=== PATIENT | male | born 1955 | race Caucasian/White ===

== ENCOUNTER → 2017-12-20 07:55 | Outpatient (CLI) | payer OTHER, SELFPAY ==
[2017-12-20 09:28] LABS: Add Manual Diff / Slide Review NO; Basophils Percent Auto 0.7 % (0-2); Eosinophils Percent Auto 2.8 % (2-4); Hematocrit 41.8 % (41-53); Hemoglobin 14.5 g/dL (13.5-17.5); Lymphocytes Percent Auto 24.1 % (25-40); Mean Corpuscular HGB Conc 34.7 % (30-36); Mean Corpuscular Hemoglobin 29.3 PG (26-34); Mean Corpuscular Volume 84.7 fL (80-100); Monocytes Percent Auto 6.9 % (3-14); Neutrophils Absolute Auto 5500 /uL (3000-5900); Neutrophils Percent Auto 65.5 % (50-75); Platelet Count 258 X10^3/uL (150-400); Red Blood Cell Count 4.94 X10^6/uL (4.5-5.9); Red Cell Distribution Width 13.5 % (11.6-14.8); White Blood Cell Count 8.3 X10^3/uL (4.5-11.0)
[2017-12-20 09:49] LABS: Hemoglobin A1C% w Est Avg Glu 7.8 % (4.0-6.0)
[2017-12-20 10:12] LABS: Carbon Dioxide 27 mmol/L (22-32); Chloride 102 mmol/L (98-107); HEMOLYSIS < 15 (0-50); Potassium 4.3 mmol/L (3.4-5.1); Sodium 143 mmol/L (137-145)
== END ==
PROVIDERS: PCP Family Medicine; Visit Provider Orthopaedic Surgery
DX: R73.09 Other abnormal glucose (principal); Z01.812 Encounter for preprocedural laboratory examination; Z01.818 Encounter for other preprocedural examination
CPT/HCPCS: 36415; 80051; 83036; 85025; 93005

== ENCOUNTER → 2017-12-26 13:34 | Outpatient (CLI) | payer OTHER, SELFPAY ==
--- NOTE | 2017-12-26 13:35 | DI.ECHO.S_ITS ---
[facility] +---------+ : : [address] : : : : [place] : : : : [id number] : : : : Phone: [phone]---------+ Echocardiogram Report + + :Name: DICK SALDIVAR V Study Date: 12/26/2017 Height: 67 in : :[facility] Exam Location: [facility] Weight: 311 lb : : Gender: Male BSA: 2.4 m2 : :: 1955 Age: 62 yrs BP: 145/85 mmHg: :Reason For Study: Abnormal ECG : :Ordering Physician: Dr. Kingsley : :Franco Performed By: Millie Page : + + Interpretation Summary Left ventricular systolic function is normal without focal wall motion abnormalities with the ejection fraction visually estimated to be 60-65%. There is mild-moderate concentric left ventricular hypertrophy. The right ventricle is mildly dilated but right ventricular systolic function is normal. Pulmonary artery pressures cannot be estimated because of the lack of a measurable TR jet velocity. The left atrium is moderately dilated and the right atrium is mildly dilated. There is mild aortic regurgitation but no other significant valvular heart disease. The aortic root and ascending aorta are moderately enlarged. Procedure: A two-dimensional transthoracic echocardiogram with color flow and Doppler was performed. The study quality was technically adequate. There is no prior echocardiogram noted for this patient. The heart rate ranged between 37-63 bpm during the study. Left Ventricle: The left ventricle is normal in size. There is mild-moderate concentric left ventricular hypertrophy. Left ventricular systolic function is normal without focal wall motion abnormalities. The ejection fraction is estimated to be 60-65%. Diastolic function could not be accurately assessed due to tachycardia. Right Ventricle: The right ventricle is mildly dilated. The right ventricular systolic function is normal. Atria: The left atrium is moderately dilated. The right atrium is mildly dilated. There is no Doppler evidence for an interatrial shunt. Mitral Valve: The mitral valve leaflets appear normal. There is no evidence of stenosis, fluttering, or prolapse. There is trace mitral regurgitation. Aortic Valve: The aortic valve is trileaflet. The aortic valve is slightly calcified. The aortic valve opens well. There is no aortic valve stenosis. There is mild aortic regurgitation. Tricuspid Valve: The tricuspid valve is normal in structure and function. There is a trace or physiologic amount of tricuspid regurgitation. Pulmonary artery pressures cannot be estimated because of the lack of a measurable TR jet velocity. Pulmonic Valve: The pulmonic valve is not well visualized. There is a trace or physiologic amount of pulmonic regurgitation. There is no other significant valvular heart disease. Great Vessels: The aortic root is moderately dilated. The ascending aorta is moderately enlarged. The aortic arch could not be visualized. The pulmonary artery is not well visualized, but is probably normal size. The inferior vena cava was not well visualized. Pericardium/ Pleura There is no pericardial effusion. There is no pleural effusion. MMode/2D Measurements & Calculations LVIDd: 5.5 cm Ao root diam: 4.2 cm LVIDs: 3.5 cm asc Aorta Diam: 4.4 cm FS: 35.6 % EPSS: 1.0 cm IVSd: 1.2 cm LVPWd: 0.94 cm LV pringle. diameter/BSA (cm/m^2): 2.2 LV sys. diameter/BSA (cm/m^2): 1.4 LA A2 area: 30.3 cm2 RA long axis: 7.4 cm LA A4 area: 32.1 cm2 RA area: 27.7 cm2 LA length (vol): 7.2 cm RA vol: 88.3 ml LA vol: 114.7 ml RA : 36.2 ml/m2 LA vol index: 47.0 ml/m2 RVD1 (basal): 5.0 cm TAPSE: 3.0 cm Doppler Measurements & Calculations Ao V2 max: 122.0 cm/sec LVOT Max Vitaliy: 87.0 cm/sec Ao V2 mean: 79.8 cm/sec LV V1 max P.0 mmHg Ao max P.0 mmHg LV V1 VTI: 19.1 cm Ao mean P.9 mmHg sev ratio: 0.79 Ao V2 VTI: 24.4 cm MV E max vitaliy: 83.2 cm/sec PA V2 max: 69.3 cm/sec MV A max vitaliy: 78.9 cm/sec PA V2 mean: 52.5 cm/sec MV E/A: 1.1 PA mean P.2 mmHg Med Peak E' Vitaliy: 4.3 cm/sec PA Accel Time: 0.13 sec E/E' med: 19.2 Lat Peak E' Vitaliy: 4.5 cm/sec E/E' lat: 18.3 E/e' average: 18.7 MV dec time: 0.26 sec MV P1/2t: 71.2 msec MV P1/2t max vitaliy: 81.4 cm/sec MVA(P1/2t): 3.1 cm2 Reading Physician:CIRO
== END ==
PROVIDERS: Family Provider Family Medicine; PCP Family Medicine; Visit Provider Family Medicine
DX: R94.31 Abnormal electrocardiogram [ECG] [EKG] (principal)
CPT/HCPCS: C8929; Q9957

== ENCOUNTER 2017-12-28 07:19 | Day surgery (SDC) | payer OTHER, SELFPAY ==
[2017-12-15 16:12] VITALS: BMI 48.6
[2017-12-28] VITALS (13 sets, daily range): BP systolic 133–175; BP diastolic 72–97; PULSE 48–60; RESP 8–16; TEMP 36.1–36.2; O2SAT 90–98; BMI 48.6
[2017-12-28] MEDS: LACTATED RINGERS 1,000 ML 42 ML IV (09:00)
[2017-12-28] MEDS: ACETAMINOPHEN 325 MG TABLET 975 MG PO (09:07)
[2017-12-28] MEDS: PREGABALIN 75 MG CAPSULE PO (09:10)
[2017-12-28] MEDS: INSULIN REGULAR 100 UNIT/ML 3 ML VIAL IV (10:10)
--- NOTE | 2017-12-28 10:13 | PM.OP.1 ---
Operative Date/Time/Diagnoses - Date of procedure: 12/28/17 Time of procedure: 11:45 Pre-op diagnosis: Medial compartment osteoarthritis right knee pain Post-op diagnosis: same Procedure & Clinicians Procedure: Right knee medial compartment arthroplasty Same procedure as scheduled: Yes Indications: The patient presents today for medial compartment knee arthroplasty after failure of conservative treatment. The nature of the procedure including the risks and benefits, alternatives, postoperative course and expected outcome were discussed and all questions answered. Consent was obtained. Operative site confirmed and marked. Surgeon: Mike Salazar Bacteriologist Pharmaceutical: Angelina Mckoy Anesthesia Type: General and Local Operative Notes Findings: Severe medial compartment osteoarthritis. Closure Type: primary Specimen(s): none sent Implants & Drains: [place] and [employer] ZUK: D femoral component, 3 tibial component and 9 mm spacer. Applied: implant(s) Estimated Blood Loss (mL): 10 Blood products transfused: none Tourniquet time (min): 45 Procedure in detail: The patient was taken to the operative suite and placed under general anesthesia. The patient received prophylactic antibiotics 1 g of IV prior to surgery. The lateral aspect of the leg was prepped and the knee injected with 20 mL of 1% lidocaine with epinephrine. The leg was prepped and draped in usual sterile fashion. The leg was exsanguinated with an Esmarch dressing and the tourniquet raised to 300 torr. A 10 cm medial parapatellar incision and arthrotomy was then made. The anterior aspect of the fat pad and medial meniscus was resected. A small amount of anterior tibial boss was resected with a oscillating saw. The knee was then extended and the alignment guide placed. The distal femoral and proximal tibial cutting guides were then pinned into place. The distal femoral cut was made in extension. The proximal tibial cut was made in flexion. All remaining meniscus was excised. Gaps were checked with blocks. Soft tissues were then injected with a combination of 40 mL of quarter percent Marcaine with epinephrine, 20 mL of Exparel. The femur was sized and the appropriate cutting guide placed. The peg holes were drilled and chamfer cuts made. Next the tibia was sized and drilled. Trial components were then placed. The knee had good mormonism of soft tissue tension without over correction. Range of motion was full. The trial components were removed. The knee was cleansed with Pulsavac irrigation and dried. The components were then cemented with high viscosity vacuum mixed bone cement. The knee was held in extension until the cement had adequately cured. The knee was then irrigated and inspected for any further debris. The extensor mechanism was closed at 90? of flexion with a few interrupted #1 Vicryl sutures and a running O V-LOC suture. The knee was then filled with 50 mL of solution containing 1 g of tranexamic acid and 10 mL of 0.5% Marcaine. The subcutaneous tissue was closed with 2-0 Vicryl. The skin was closed with a running 3 0 V-LOC suture and surgical adhesive. An Aquacel dressing was applied. The leg was then wrapped with an Del which will be kept on for the first 24 hours. The patient tolerated the procedure well and was returned to recovery room in good condition. Complications: none Condition: stable Disposition: same day surgery Plan for aftercare: Routine protocol for unicompartmental knee. Discharge to home. Follow up in 2 weeks.
[2017-12-28] MEDS: CEFAZOLIN 2 GM/100 ML FROZ.PIGGY IV (10:34)
--- NOTE | 2017-12-28 11:19 | SUR.OPER ---
Supine on padded OR bed. Pillow under head, arms secured on padded armboards <90 degree abduction. Safety belt across torso. Non-operative leg secured with tape over blanket over lower leg. Operative leg secured in DeMayo/Sixto positioner. Foam padded brace at thigh of operative leg.
[2017-12-28] MEDS: BUPIVACAINE 0.5% (PF) 10 ML, TRANEXAMIC ACID 1,000 MG, SODIUM CHLORIDE 0.9% 20 ML INJ (11:37)
[2017-12-28] MEDS: BUPIVACAINE 0.5% W/ EPI (PF) 20 ML, BUPIVACAINE LIPOSOME 266 MG, SODIUM CHLORIDE 0.9% 2... INJ (11:37)
[2017-12-28] MEDS: LIDOCAINE 1% W/EPI INJ 20 ML INJ (11:47)
--- NOTE | 2017-12-28 11:54 | PM.PREOP ---
Pre-operative Note Interval Note Pre-op Check: History & Physical Reviewed by Physician
--- NOTE | 2017-12-28 12:22 | SUR.PHASEI ---
Blood glucose not done per Dr. Beavers.
--- NOTE | 2017-12-28 12:27 | SUR.PHASEI ---
Responsive to voice but quite sleepy still at this point. Able to decrease o2 slightly.
--- NOTE | 2017-12-28 12:42 | SUR.PHASEI ---
brief trial with NC with sat dropping to 91% however same flow rate with mask brings sats to 95%. RR is increasing with no irregular pattern seen at this time, but still sleepy altho responsive quickly to voice.
== END 2017-12-28 13:52 | disposition home or self-care (01) ==
PROVIDERS: Family Provider Family Medicine; PCP Family Medicine; Visit Provider Orthopaedic Surgery
PROC: (CPT 27446; principal; 2017-12-28 09:15)
DX: M17.11 Unilateral primary osteoarthritis, right knee (principal); E11.9 Type 2 diabetes mellitus without complications; Z79.84 Long term (current) use of oral hypoglycemic drugs; I10 Essential (primary) hypertension; G47.33 Obstructive sleep apnea (adult) (pediatric); E66.9 Obesity, unspecified; Z68.42 Body mass index [BMI] 45.0-49.9, adult
CPT/HCPCS: 27446; C1776; C9290; J0690; J2405; J2704; J3010

== ENCOUNTER 2018-03-21 09:00 | Outpatient (RCR) | payer OTHER, SELFPAY ==
--- NOTE | 2018-01-03 17:35 | PT.OIE ---
Past Medical History (Last Updated 12/15/17 @ 16:26 by Sierra Mcginnis RN) Arthritis of both knees (Acute) Cataract (Acute) Diverticulitis (Acute) Genital HSV (Acute) History of diverticulitis (Acute) Hypertension (Acute) Knee pain, bilateral (Acute) Melanoma (Acute ~2006) Psoriasis (Acute) Sleep apnea (Acute) Provider Visit Care Team Role Provider Type Sancho Gamez MD Family Provider Physician Primary Care Provider Specialty: Family Practice Address: [address] [place] [address], [id number] Email: [email or web address] Mike Salazar MD Attending Provider Physician Specialty: Orthopedics Address: [address] [place] [address], [id number] Email: Physical Therapy Initial Evaluation PT-OP-A Visit Information Start: 01/02/18 14:32 Freq: Status: Active Protocol: Document 01/02/18 14:32 [facility] (Rec: 01/02/18 17:11 [facility] [id number]) Out-Patient Physical Therapy Visit Information Visit Information Visit Type Initial Evaluation Visit Start Time 14:32 Visit Stop Time 15:34 Total Visit Minutes 60 Visit Number 1 Number of DIRECTOR CONSUMER AFFAIRS Visits 0 PT-OP-B Current Condition Start: 01/02/18 14:32 Freq: Status: Active Protocol: Document 01/02/18 14:32 [facility] (Rec: 01/02/18 15:20 [facility] [id number]) Current Condition History of Current Condition Onset Date 01/07/18. Current Complaints Right uni-compartmental knee arthroplasty. History of Current Condition Uni-compartmental knee arthroplsty 12/28/17. Reports compliant to HEP, dressing has loosened on one side but he has been taping it closed for shower. Drainage has increased but no leaking. States he got a cold after surgery, better today; started as a chest cold, fever of 99 for 1 day. Has not called surgeon regarding either dressing or cold. Unable to lift LE by himself. Enough pain that he has difficulty sleeping, plus the cold. Prior to surgery ambulated with cane. Future Testing and Treatments Planned Plan is for left knee surgery after recovered from right. Treatment Goals Patient/Caregiver Goals Improve ROM, strength, gait. Prep for left TKA. Prior Functional Status Baseline Function- ADL's Independent Baseline Function- Mobility Independent Baseline Function- Gait Independent, limited distance, used cane due to bilateral knee pn Baseline Function- Recreation/Hobbies photography Baseline Function- Other stairs alternating pattern Current Functional Impairments (Reported) Functional Limitations- Mobility/Gait using walker Functional Limitations- Other step-to on stairs PT-OP-G Mobility & Gait Start: 01/02/18 14:32 Freq: Status: Active Protocol: Document 01/02/18 14:32 [facility] (Rec: 01/02/18 17:11 [facility] [id number]) OP Gait Assessment Gait Gait Assistance Required: Independent Assistive Devices Assistive Device Standard Walker Gait Deviations General Gait Pattern Antalgic Factors Limiting Gait Function Factors Limiting Gait Function Pain PT-OP-K Range of Motion Start: 01/02/18 14:32 Freq: Status: Active Protocol: Document 01/02/18 14:32 [facility] (Rec: 01/02/18 17:11 [facility] [id number]) Knee Goniometric Range of Motion Knee Measured in Degrees Right Knee ROM WFL No Flexion Active (degrees) 94 Flexion Passive (degrees) 100 Extension Active (degrees) 22 Extension Passive (degrees) 5 Left Knee ROM WFL Yes Knee ROM Limitations Knee ROM Limitations Pain Swelling PT-OP-M Strength Start: 01/02/18 14:32 Freq: Status: Active Protocol: Document 01/02/18 14:32 [facility] (Rec: 01/02/18 17:11 [facility] [id number]) Knee Strength Knee Manual Muscle Testing Right Comments extensor lag requiring mod assist with SAQ and SLR PT-OP-Q Treatments Start: 01/02/18 14:32 Freq: Status: Active Protocol: Document 01/02/18 14:32 [facility] (Rec: 01/02/18 17:11 [facility] [id number]) Therapeutic Exercises Supine Exercises 2 Supine Exercise Name knee flex with foot on therapy ball Side right 1 Supine Exercise Name ankle pumps, quad sets, SAQ, SLR Side right Comments mod assist with SAQ and SLR Self-Care/Home Management Treatment Education Patient Education Home Exercise Program Activities Self-Care/Home Management Activities Elevate higher during icing after exercises at home PT-OP-R Modalities Start: 01/02/18 14:32 Freq: Status: Active Protocol: Document 01/02/18 14:32 [facility] (Rec: 01/02/18 17:11 [facility] [id number]) Electric Stimulation Electric Stimulation Interferential Current (IFC) Body Location right knee Duration (Minutes) 15 Intensity 26 Target/Sweep Sweep Patient Position Supine Combined With Heat/Cold Cold Pack Comments right LE elvated PT-OP-T Assessment and Plan Start: 01/02/18 14:32 Freq: Status: Active Protocol: Document 01/02/18 14:32 [facility] (Rec: 01/02/18 17:11 [facility] [id number]) Physical Therapy Assessment Rehab Potential Rehabilitation Potential Good Evaluation Complexity Number of Personal Factors/Comorbidities 3 or More Clinical Presentation at Evaluation Evolving Impairments Impairments Edema Functional Mobility Gait Pain ROM Strength Goals Three Impairment strength Rn Sexual Assault Goal (LTG) right knee strength at least 4 +/5 LTG Duration 8 wks Two Impairment antalgic gait, requires use of walker Rn Sexual Assault Goal (LTG) Patient able to ambulate on level surfaces and stairs ( alternating pattern) without assistive device without significant limp LTG Duration 8 wks One Impairment ROM Rn Sexual Assault Goal (LTG) Improve right knee AROM to 0- 120 LTG Duration 8 wks Assessment Summary Assessment Patient presents with post-op limitations in knee ROM, strength, gait following right knee delvis-arthroplasty. Moderate edema, no signs or symptoms of infection. Developed a cold after his surgery; consulted with doctor 's office while in PT. Mod amount drainage on post-op dressing and lower lateral edges of dressing have come loose; also consulted with physician office who recommended using waterproof tape to secure no change needed. Patient was issued a new bandage from PT in case becames necessary at home. Will benefit from PT for right knee ROM, strengthening, gait and balance retraining, edema and pain managment. Physical Therapy Plan Frequency and Duration Frequency of Treatment 2x/Week Duration of Treatment 8 wks Plan of Care Start Date 01/02/18 Plan of Care End Date 03/05/18 Therapeutic Interventions Therapeutic Interventions Gait Training Home Exercise Program Manual Therapy Neuromuscular Re-education Patient/Caregiver Education Self-Care/Home Management Soft Tissue Mobilization Taping Therapeutic Activities Therapeutic Exercises Modalities Cold Pack/Ice Massage Electric Stimulation Other Therapeutic Interventions Possible aquatic therapy when incision healed and approved by physician Next Visit Focus/Plan Next Note Type Treatment Note Next Visit Plan Progression of UKA knee rehab; started on recumbant elliptical, progress ther ex as tolerated.
--- NOTE | 2018-01-03 17:35 | PT.OPPOC ---
Provider Visit Care Team Role Provider Type Sancho Gamez MD Family Provider Physician Primary Care Provider Specialty: Family Practice Address: [address] [place] [address], [id number] Email: [email or web address] Mike Salazar MD Attending Provider Physician Specialty: Orthopedics Address: [address] [place] [address], [phone] Email: [email or web address] Plan Of Care PT-OP-T Assessment and Plan Start: 01/02/18 14:32 Freq: Status: Active Protocol: Document 01/02/18 14:32 [facility] (Rec: 01/02/18 17:11 [facility] [id number]) Physical Therapy Assessment Rehab Potential Rehabilitation Potential Good Evaluation Complexity Number of Personal Factors/Comorbidities 3 or More Clinical Presentation at Evaluation Evolving Impairments Impairments Edema Functional Mobility Gait Pain ROM Strength Goals Three Impairment strength Industrial Gas Fitter Helper Goal (LTG) right knee strength at least 4 +/5 LTG Duration 8 wks Two Impairment antalgic gait, requires use of walker Industrial Gas Fitter Helper Goal (LTG) Patient able to ambulate on level surfaces and stairs ( alternating pattern) without assistive device without significant limp LTG Duration 8 wks One Impairment ROM Long-Term Goal (LTG) Improve right knee AROM to 0- 120 LTG Duration 8 wks Assessment Summary Assessment Patient presents with post-op limitations in knee ROM, strength, gait following right knee delvis-arthroplasty. Moderate edema, no signs or symptoms of infection. Developed a cold after his surgery; consulted with doctor 's office while in PT. Mod amount drainage on post-op dressing and lower lateral edges of dressing have come loose; also consulted with physician office who recommended using waterproof tape to secure no change needed. Patient was issued a new bandage from PT in case becames necessary at home. Will benefit from PT for right knee ROM, strengthening, gait and balance retraining, edema and pain managment. Physical Therapy Plan Frequency and Duration Frequency of Treatment 2x/Week Duration of Treatment 8 wks Plan of Care Start Date 01/02/18 Plan of Care End Date 03/05/18 Therapeutic Interventions Therapeutic Interventions Gait Training Home Exercise Program Manual Therapy Neuromuscular Re-education Patient/Caregiver Education Self-Care/Home Management Soft Tissue Mobilization Taping Therapeutic Activities Therapeutic Exercises Modalities Cold Pack/Ice Massage Electric Stimulation Other Therapeutic Interventions Possible aquatic therapy when incision healed and approved by physician Next Visit Focus/Plan Next Note Type Treatment Note Next Visit Plan Progression of UKA knee rehab; started on recumbant elliptical, progress ther ex as tolerated. Plan of Care Dates Plan of Care Start Date 01/02/18 Plan of Care End Date 03/05/18 Please Sign and Return: I have reviewed this Plan of Care and certify that the skilled therapy services above are required to meet the patient?s needs. Physician Signature Date Printed Name and Credentials Clinical Instructor Signature Printed Name and Credentials
--- NOTE | 2018-01-04 16:01 | PT.OTN ---
Physical Therapy Treatment Note PT-OP-A Visit Information Start: 01/02/18 14:32 Freq: Status: Active Protocol: Document 01/04/18 14:18 [facility] (Rec: 01/04/18 16:01 [facility] [id number]) Out-Patient Physical Therapy Visit Information Visit Information Visit Type Treatment Note Visit Start Time 13:45 Visit Stop Time 14:45 Total Visit Minutes 60 Visit Number 2 Number of LIGHTING EQUIPMENT OPERATOR Visits 0 PT-OP-B Current Condition Start: 01/02/18 14:32 Freq: Status: Active Protocol: Document 01/02/18 14:32 SAK (Rec: 01/02/18 15:20 SAK [id number]) Current Condition History of Current Condition Onset Date 01/07/18. Current Complaints Right uni-compartmental knee arthroplasty. History of Current Condition Uni-compartmental knee arthroplsty 12/28/17. Reports compliant to HEP, dressing has loosened on one side but he has been taping it closed for shower. Drainage has increased but no leaking. States he got a cold after surgery, better today; started as a chest cold, fever of 99 for 1 day. Has not called surgeon regarding either dressing or cold. Unable to lift LE by himself. Enough pain that he has difficulty sleeping, plus the cold. Prior to surgery ambulated with cane. Future Testing and Treatments Planned Plan is for left knee surgery after recovered from right. Treatment Goals Patient/Caregiver Goals Improve ROM, strength, gait. Prep for left TKA. Prior Functional Status Baseline Function- ADL's Independent Baseline Function- Mobility Independent Baseline Function- Gait Independent, limited distance, used cane due to bilateral knee pn Baseline Function- Recreation/Hobbies photography Baseline Function- Other stairs alternating pattern Current Functional Impairments (Reported) Functional Limitations- Mobility/Gait using walker Functional Limitations- Other step-to on stairs PT-OP-C Subjective Start: 01/02/18 14:32 Freq: Status: Active Protocol: Document 01/04/18 14:18 [facility] (Rec: 01/04/18 16:00 [facility] [id number]) OP-PT Subjective Patient Comments Patient Comments Pt reports compliance with HEP PT-OP-G Mobility & Gait Start: 01/02/18 14:32 Freq: Status: Active Protocol: Document 01/02/18 14:32 SAK (Rec: 01/02/18 17:11 SAK [id number]) OP Gait Assessment Gait Gait Assistance Required: Independent Assistive Devices Assistive Device Standard Walker Gait Deviations General Gait Pattern Antalgic Factors Limiting Gait Function Factors Limiting Gait Function Pain PT-OP-K Range of Motion Start: 01/02/18 14:32 Freq: Status: Active Protocol: Document 01/02/18 14:32 SAK (Rec: 01/02/18 17:11 SAK [id number]) Knee Goniometric Range of Motion Knee Measured in Degrees Right Knee ROM WFL No Flexion Active (degrees) 94 Flexion Passive (degrees) 100 Extension Active (degrees) 22 Extension Passive (degrees) 5 Left Knee ROM WFL Yes Knee ROM Limitations Knee ROM Limitations Pain Swelling PT-OP-M Strength Start: 01/02/18 14:32 Freq: Status: Active Protocol: Document 01/02/18 14:32 SAK (Rec: 01/02/18 17:11 [facility] [id number]) Knee Strength Knee Manual Muscle Testing Right Comments extensor lag requiring mod assist with SAQ and SLR PT-OP-Q Treatments Start: 01/02/18 14:32 Freq: Status: Active Protocol: Document 01/04/18 14:18 [facility] (Rec: 01/04/18 16:00 [facility] [id number]) Cardio Equipment Recumbent Stepper (Sci-Fit) Duration (Minutes) 7 Resistance 2 Therapeutic Exercises Supine Exercises 1 Supine Exercise Name ankle pumps, quad sets, SAQ, SLR Side right Sitting Exercises 2 Sitting Exercise Name LAQ Reps/Minutes 20 1 Sitting Exercise Name seated knee flex with scoot fwd Reps/Minutes 4 Standing Exercises 1 Standing Exercise Name sit to stand Reps/Minutes 5 Gait Training Gait Activity 1 Device Used cane Level of Assistance SBA & cueing Surface level Treatment Focus cane in L hand and sequence with posture Comments stop intermittently to stand up as tall as possible without pain Manual Therapy Treatment Soft Tissue Mobilization 1 Body Location HS Mobilization Type Rolling Intensity/Depth Superficial PT-OP-R Modalities Start: 01/02/18 14:32 Freq: Status: Active Protocol: Document 01/04/18 14:18 [facility] (Rec: 01/04/18 16:00 [facility] [id number]) Electric Stimulation Electric Stimulation Interferential Current (IFC) Body Location right knee Duration (Minutes) 15 Intensity 26 Target/Sweep Sweep Patient Position Supine Combined With Heat/Cold Cold Pack Comments right LE elvated PT-OP-T Assessment and Plan Start: 01/02/18 14:32 Freq: Status: Active Protocol: Document 01/04/18 14:18 [facility] (Rec: 01/04/18 16:00 [facility] [id number]) Physical Therapy Assessment Goals Three Impairment strength Mcfp Goal (LTG) right knee strength at least 4 +/5 LTG Duration 8 wks Two Impairment antalgic gait, requires use of walker Ultrasonic Seaming Machine Operator Goal (LTG) Patient able to ambulate on level surfaces and stairs ( alternating pattern) without assistive device without significant limp LTG Duration 8 wks One Impairment ROM Ultrasonic Seaming Machine Operator Goal (LTG) Improve right knee AROM to 0- 120 LTG Duration 8 wks Assessment Summary Assessment Pt is improving well with knee flex with knee flex to 117 but cont to lack knee ext with about 10 deg lack of ext today. Pt had difficulty with quad activation & required facilitation. Pt was instructed to discuss with surgeons office re: some drainage outside of bandage and need for tape. Pt noted MD had told him to report if there is any seeping of drainage outside bandage. Physical Therapy Plan Frequency and Duration Frequency of Treatment 2x/Week Duration of Treatment 8 wks Plan of Care Start Date 01/02/18 Plan of Care End Date 03/05/18 Next Visit Focus/Plan Next Note Type Treatment Note Next Visit Plan Cont to work on quad strength & knee ext 3
--- NOTE | 2018-01-09 09:03 | PT.OTN ---
Physical Therapy Treatment Note PT-OP-A Visit Information Start: 01/02/18 14:32 Freq: Status: Active Protocol: Document 01/09/18 08:12 [facility] (Rec: 01/09/18 09:02 [facility] [id number]) Out-Patient Physical Therapy Visit Information Visit Information Visit Type Treatment Note Visit Start Time 08:15 Visit Stop Time 09:10 Total Visit Minutes 55 Visit Number 2 Number of [employer]FI[employer] G[employer]LE[employer] OPERATOR Visits 0 PT-OP-B Current Condition Start: 01/02/18 14:32 Freq: Status: Active Protocol: Document 01/02/18 14:32 SAK (Rec: 01/02/18 15:20 SAK [id number]) Current Condition History of Current Condition Onset Date 01/07/18. Current Complaints Right uni-compartmental knee arthroplasty. History of Current Condition Uni-compartmental knee arthroplsty 12/28/17. Reports compliant to HEP, dressing has loosened on one side but he has been taping it closed for shower. Drainage has increased but no leaking. States he got a cold after surgery, better today; started as a chest cold, fever of 99 for 1 day. Has not called surgeon regarding either dressing or cold. Unable to lift LE by himself. Enough pain that he has difficulty sleeping, plus the cold. Prior to surgery ambulated with cane. Future Testing and Treatments Planned Plan is for left knee surgery after recovered from right. Treatment Goals Patient/Caregiver Goals Improve ROM, strength, gait. Prep for left TKA. Prior Functional Status Baseline Function- ADL's Independent Baseline Function- Mobility Independent Baseline Function- Gait Independent, limited distance, used cane due to bilateral knee pn Baseline Function- Recreation/Hobbies photography Baseline Function- Other stairs alternating pattern Current Functional Impairments (Reported) Functional Limitations- Mobility/Gait using walker Functional Limitations- Other step-to on stairs PT-OP-C Subjective Start: 01/02/18 14:32 Freq: Status: Active Protocol: Document 01/09/18 08:12 [facility] (Rec: 01/09/18 09:02 [facility] [id number]) OP-PT Subjective Patient Comments Patient Comments Reports constant dull ache right in knee cap region. Pt reports quad set hurts. Reports he has needed more oxy this week than last week. PT-OP-G Mobility & Gait Start: 01/02/18 14:32 Freq: Status: Active Protocol: Document 01/02/18 14:32 SAK (Rec: 01/02/18 17:11 SAK [id number]) OP Gait Assessment Gait Gait Assistance Required: Independent Assistive Devices Assistive Device Standard Walker Gait Deviations General Gait Pattern Antalgic Factors Limiting Gait Function Factors Limiting Gait Function Pain PT-OP-K Range of Motion Start: 01/02/18 14:32 Freq: Status: Active Protocol: Document 01/02/18 14:32 SAK (Rec: 01/02/18 17:11 SAK [id number]) Knee Goniometric Range of Motion Knee Measured in Degrees Right Knee ROM WFL No Flexion Active (degrees) 94 Flexion Passive (degrees) 100 Extension Active (degrees) 22 Extension Passive (degrees) 5 Left Knee ROM WFL Yes Knee ROM Limitations Knee ROM Limitations Pain Swelling PT-OP-M Strength Start: 01/02/18 14:32 Freq: Status: Active Protocol: Document 01/02/18 14:32 SAK (Rec: 01/02/18 17:11 [facility] [id number]) Knee Strength Knee Manual Muscle Testing Right Comments extensor lag requiring mod assist with SAQ and SLR PT-OP-Q Treatments Start: 01/02/18 14:32 Freq: Status: Active Protocol: Document 01/09/18 08:12 [facility] (Rec: 01/09/18 09:02 [facility] [id number]) Cardio Equipment Recumbent Stepper (Sci-Fit) Duration (Minutes) 7 Resistance 2 Gym Equipment Shuttle Recovery Unilateral Squats Resistance 50# Shuttle Recovery Platform Stable Reps/Time 30 Bilateral Squats Resistance 75# Shuttle Recovery Platform Stable Reps/Time 30 Therapeutic Exercises Standing Exercises 5 Standing Exercise Name TKE Resistance L1 Reps/Minutes 30 4 Standing Exercise Name calf raises Reps/Minutes 20 3 Standing Exercise Name calf stretch 2 Standing Exercise Name BRIANNA Manual Therapy Treatment Soft Tissue Mobilization 2 Body Location Along VMO Mobilization Type Rolling Intensity/Depth Superficial PT-OP-R Modalities Start: 01/02/18 14:32 Freq: Status: Active Protocol: Document 01/09/18 08:12 [facility] (Rec: 01/09/18 09:02 [facility] [id number]) Electric Stimulation Electric Stimulation Interferential Current (IFC) Body Location right knee Duration (Minutes) 15 Intensity 26 Target/Sweep Sweep Patient Position Supine Combined With Heat/Cold Cold Pack Comments right LE elvated PT-OP-T Assessment and Plan Start: 01/02/18 14:32 Freq: Status: Active Protocol: Document 01/09/18 08:12 [facility] (Rec: 01/09/18 09:02 [facility] [id number]) Physical Therapy Assessment Goals Three Impairment strength Senior Care Goal (LTG) right knee strength at least 4 +/5 LTG Duration 8 wks Two Impairment antalgic gait, requires use of walker Petroleum Plant Operator Goal (LTG) Patient able to ambulate on level surfaces and stairs ( alternating pattern) without assistive device without significant limp LTG Duration 8 wks One Impairment ROM Senior Care Goal (LTG) Improve right knee AROM to 0- 120 LTG Duration 8 wks Assessment Summary Assessment 12-115 at start of session. Pt is improving with strength & mobility overall, but has weakness primarily in quads Physical Therapy Plan Frequency and Duration Frequency of Treatment 2x/Week Duration of Treatment 8 wks Plan of Care Start Date 01/02/18 Plan of Care End Date 03/05/18 Next Visit Focus/Plan Next Note Type Treatment Note Next Visit Plan Cont to work on quad strength & knee ext
--- NOTE | 2018-01-16 13:45 | PT.OTN ---
Current Diagnoses Presence of right artificial knee joint (01/16/18) Physical Therapy Treatment Note PT-OP-A Visit Information Start: 01/02/18 14:32 Freq: Status: Active Protocol: Document 01/16/18 10:30 GGD (Rec: 01/16/18 13:45 GGD [id number]) Out-Patient Physical Therapy Visit Information Visit Information Visit Type Treatment Note Visit Start Time 09:45 Visit Stop Time 10:40 Total Visit Minutes 55 Visit Number 4 Number of MUSIC BOX MECHANIC Visits 1 PT-OP-B Current Condition Start: 01/02/18 14:32 Freq: Status: Active Protocol: Document 01/02/18 14:32 SAK (Rec: 01/02/18 15:20 SAK [id number]) Current Condition History of Current Condition Onset Date 01/07/18. Current Complaints Right uni-compartmental knee arthroplasty. History of Current Condition Uni-compartmental knee arthroplsty 12/28/17. Reports compliant to HEP, dressing has loosened on one side but he has been taping it closed for shower. Drainage has increased but no leaking. States he got a cold after surgery, better today; started as a chest cold, fever of 99 for 1 day. Has not called surgeon regarding either dressing or cold. Unable to lift LE by himself. Enough pain that he has difficulty sleeping, plus the cold. Prior to surgery ambulated with cane. Future Testing and Treatments Planned Plan is for left knee surgery after recovered from right. Treatment Goals Patient/Caregiver Goals Improve ROM, strength, gait. Prep for left TKA. Prior Functional Status Baseline Function- ADL's Independent Baseline Function- Mobility Independent Baseline Function- Gait Independent, limited distance, used cane due to bilateral knee pn Baseline Function- Recreation/Hobbies photography Baseline Function- Other stairs alternating pattern Current Functional Impairments (Reported) Functional Limitations- Mobility/Gait using walker Functional Limitations- Other step-to on stairs PT-OP-C Subjective Start: 01/02/18 14:32 Freq: Status: Active Protocol: Document 01/16/18 10:30 GGD (Rec: 01/16/18 13:45 GGD [id number]) OP-PT Subjective Patient Comments Patient Comments Pt states he had more pain after increase HEP. PT-OP-G Mobility & Gait Start: 01/02/18 14:32 Freq: Status: Active Protocol: Document 01/02/18 14:32 SAK (Rec: 01/02/18 17:11 [facility] [id number]) OP Gait Assessment Gait Gait Assistance Required: Independent Assistive Devices Assistive Device Standard Walker Gait Deviations General Gait Pattern Antalgic Factors Limiting Gait Function Factors Limiting Gait Function Pain PT-OP-K Range of Motion Start: 01/02/18 14:32 Freq: Status: Active Protocol: Document 01/02/18 14:32 SAK (Rec: 01/02/18 17:11 SAK [id number]) Knee Goniometric Range of Motion Knee Measured in Degrees Right Knee ROM WFL No Flexion Active (degrees) 94 Flexion Passive (degrees) 100 Extension Active (degrees) 22 Extension Passive (degrees) 5 Left Knee ROM WFL Yes Knee ROM Limitations Knee ROM Limitations Pain Swelling PT-OP-M Strength Start: 01/02/18 14:32 Freq: Status: Active Protocol: Document 01/02/18 14:32 SAK (Rec: 01/02/18 17:11 [facility] [id number]) Knee Strength Knee Manual Muscle Testing Right Comments extensor lag requiring mod assist with SAQ and SLR PT-OP-Q Treatments Start: 01/02/18 14:32 Freq: Status: Active Protocol: Document 01/16/18 10:30 GGD (Rec: 01/16/18 13:45 GGD [id number]) Cardio Equipment Recumbent Stepper (Sci-Fit) Duration (Minutes) 7 Resistance 2 Gym Equipment Shuttle Recovery Unilateral Squats Resistance 67# Shuttle Recovery Platform Stable Reps/Time 30 Bilateral Squats Resistance 75# Shuttle Recovery Platform Stable Reps/Time 30 Therapeutic Exercises Sidelying Exercises 1 Sidelying Exercise Name Hip ABD Reps/Minutes 10 Sitting Exercises 2 Sitting Exercise Name LAQ Reps/Minutes 20 Standing Exercises 5 Standing Exercise Name TKE Resistance L1 Reps/Minutes 30 4 Standing Exercise Name calf raises Reps/Minutes 20 3 Standing Exercise Name calf stretch 2 Standing Exercise Name BRIANNA Manual Therapy Treatment Soft Tissue Mobilization 2 Body Location Along VMO Mobilization Type Rolling Intensity/Depth Superficial PT-OP-R Modalities Start: 01/02/18 14:32 Freq: Status: Active Protocol: Document 01/16/18 10:30 GGD (Rec: 01/16/18 13:45 GGD [email or web address]) Electric Stimulation Electric Stimulation Interferential Current (IFC) Body Location right knee Duration (Minutes) 15 Intensity 26 Target/Sweep Sweep Patient Position Supine Combined With Heat/Cold Cold Pack Comments right LE elvated PT-OP-T Assessment and Plan Start: 01/02/18 14:32 Freq: Status: Active Protocol: Document 01/16/18 10:30 GGD (Rec: 01/16/18 13:45 GGD [email or web address]) Physical Therapy Assessment Assessment Summary Assessment Pt improving slowly with rOM and strength. He had improve in knee extension. Physical Therapy Plan Frequency and Duration Frequency of Treatment 2x/Week Duration of Treatment 8 wks Plan of Care Start Date 01/02/18 Plan of Care End Date 03/05/18 Next Visit Focus/Plan Next Note Type Treatment Note Next Visit Plan Cont to work on quad strength & knee ext
--- NOTE | 2018-01-23 10:23 | PT.OTN ---
Current Diagnoses Presence of right artificial knee joint (01/23/18) Physical Therapy Treatment Note PT-OP-A Visit Information Start: 01/02/18 14:32 Freq: Status: Active Protocol: Document 01/23/18 10:15 GGD (Rec: 01/23/18 10:22 GGD [email or web address]) Out-Patient Physical Therapy Visit Information Visit Information Visit Type Treatment Note Visit Start Time 09:45 Visit Stop Time 10:40 Total Visit Minutes 55 Visit Number 5 Number of FUR BLOWER Visits 2 PT-OP-B Current Condition Start: 01/02/18 14:32 Freq: Status: Active Protocol: Document 01/02/18 14:32 SAK (Rec: 01/02/18 15:20 SAK [id number]) Current Condition History of Current Condition Onset Date 01/07/18. Current Complaints Right uni-compartmental knee arthroplasty. History of Current Condition Uni-compartmental knee arthroplsty 12/28/17. Reports compliant to HEP, dressing has loosened on one side but he has been taping it closed for shower. Drainage has increased but no leaking. States he got a cold after surgery, better today; started as a chest cold, fever of 99 for 1 day. Has not called surgeon regarding either dressing or cold. Unable to lift LE by himself. Enough pain that he has difficulty sleeping, plus the cold. Prior to surgery ambulated with cane. Future Testing and Treatments Planned Plan is for left knee surgery after recovered from right. Treatment Goals Patient/Caregiver Goals Improve ROM, strength, gait. Prep for left TKA. Prior Functional Status Baseline Function- ADL's Independent Baseline Function- Mobility Independent Baseline Function- Gait Independent, limited distance, used cane due to bilateral knee pn Baseline Function- Recreation/Hobbies photography Baseline Function- Other stairs alternating pattern Current Functional Impairments (Reported) Functional Limitations- Mobility/Gait using walker Functional Limitations- Other step-to on stairs PT-OP-C Subjective Start: 01/02/18 14:32 Freq: Status: Active Protocol: Document 01/23/18 10:15 GGD (Rec: 01/23/18 10:22 GGD [email or web address]) OP-PT Subjective Patient Comments Patient Comments Pt states he having less pain, continue pain with sleeping. Has questions about HEP. PT-OP-G Mobility & Gait Start: 01/02/18 14:32 Freq: Status: Active Protocol: Document 01/02/18 14:32 SAK (Rec: 01/02/18 17:11 SAK [id number]) OP Gait Assessment Gait Gait Assistance Required: Independent Assistive Devices Assistive Device Standard Walker Gait Deviations General Gait Pattern Antalgic Factors Limiting Gait Function Factors Limiting Gait Function Pain PT-OP-K Range of Motion Start: 01/02/18 14:32 Freq: Status: Active Protocol: Document 01/23/18 10:15 [facility]GD (Rec: 01/23/18 10:22 GGD [email or web address]) Knee Goniometric Range of Motion Knee Measured in Degrees Right Flexion Active (degrees) 127 Extension Active (degrees) 3 PT-OP-M Strength Start: 01/02/18 14:32 Freq: Status: Active Protocol: Document 01/02/18 14:32 [facility]AK (Rec: 01/02/18 17:11 SAK [id number]) Knee Strength Knee Manual Muscle Testing Right Comments extensor lag requiring mod assist with SAQ and SLR PT-OP-Q Treatments Start: 01/02/18 14:32 Freq: Status: Active Protocol: Document 01/23/18 10:15 [facility] (Rec: 01/23/18 10:22 GGD [email or web address]) Cardio Equipment Recumbent Stepper (Sci-Fit) Duration (Minutes) 7 Resistance 2 Gym Equipment Shuttle Recovery Unilateral Squats Resistance 67# Shuttle Recovery Platform Stable Reps/Time 15 Bilateral Squats Resistance 87# Shuttle Recovery Platform Stable Reps/Time 30 Therapeutic Exercises Sidelying Exercises 1 Sidelying Exercise Name Hip ABD Reps/Minutes 10 Sitting Exercises 2 Sitting Exercise Name LAQ Reps/Minutes 20 Standing Exercises 5 Standing Exercise Name TKE Resistance L1 Reps/Minutes 30 4 Standing Exercise Name calf raises Reps/Minutes 20 3 Standing Exercise Name calf stretch 2 Standing Exercise Name BRIANNA Manual Therapy Treatment Soft Tissue Mobilization 2 Body Location Along VMO Mobilization Type Rolling Intensity/Depth Superficial PT-OP-R Modalities Start: 01/02/18 14:32 Freq: Status: Active Protocol: Document 01/23/18 10:15 [facility]GD (Rec: 01/23/18 10:22 GGD [email or web address]) Electric Stimulation Electric Stimulation Interferential Current (IFC) Body Location right knee Duration (Minutes) 15 Intensity 26 Target/Sweep Sweep Patient Position Supine Combined With Heat/Cold Cold Pack Comments Right LE in extension for 5 min and then with roll under knee. PT-OP-T Assessment and Plan Start: 01/02/18 14:32 Freq: Status: Active Protocol: Document 01/23/18 10:15 GGD (Rec: 01/23/18 10:22 GGD [email or web address]) Physical Therapy Assessment Assessment Summary Assessment Pt improving with knee ROM and strength. He having less pain with activities. Physical Therapy Plan Frequency and Duration Frequency of Treatment 2x/Week Duration of Treatment 8 wks Plan of Care Start Date 01/02/18 Plan of Care End Date 03/05/18 Next Visit Focus/Plan Next Note Type Treatment Note Next Visit Plan Cont to work on quad strength & knee ext
--- NOTE | 2018-01-30 12:23 | PT.OTN ---
Current Diagnoses Presence of right artificial knee joint (01/30/18) Physical Therapy Treatment Note PT-OP-A Visit Information Start: 01/02/18 14:32 Freq: Status: Active Protocol: Document 01/23/18 10:15 GGD (Rec: 01/23/18 10:22 GGD [email or web address]) Out-Patient Physical Therapy Visit Information Visit Information Visit Type Treatment Note Visit Start Time 09:45 Visit Stop Time 10:40 Total Visit Minutes 55 Visit Number 5 Number of CABLE INSTALLATION TECHNICIAN Visits 2 PT-OP-B Current Condition Start: 01/02/18 14:32 Freq: Status: Active Protocol: Document 01/02/18 14:32 SAK (Rec: 01/02/18 15:20 SAK [id number]) Current Condition History of Current Condition Onset Date 01/07/18. Current Complaints Right uni-compartmental knee arthroplasty. History of Current Condition Uni-compartmental knee arthroplsty 12/28/17. Reports compliant to HEP, dressing has loosened on one side but he has been taping it closed for shower. Drainage has increased but no leaking. States he got a cold after surgery, better today; started as a chest cold, fever of 99 for 1 day. Has not called surgeon regarding either dressing or cold. Unable to lift LE by himself. Enough pain that he has difficulty sleeping, plus the cold. Prior to surgery ambulated with cane. Future Testing and Treatments Planned Plan is for left knee surgery after recovered from right. Treatment Goals Patient/Caregiver Goals Improve ROM, strength, gait. Prep for left TKA. Prior Functional Status Baseline Function- ADL's Independent Baseline Function- Mobility Independent Baseline Function- Gait Independent, limited distance, used cane due to bilateral knee pn Baseline Function- Recreation/Hobbies photography Baseline Function- Other stairs alternating pattern Current Functional Impairments (Reported) Functional Limitations- Mobility/Gait using walker Functional Limitations- Other step-to on stairs PT-OP-C Subjective Start: 01/02/18 14:32 Freq: Status: Active Protocol: Document 01/30/18 11:17 SAK (Rec: 01/30/18 11:30 SAK [id number]) OP-PT Subjective Patient Comments Patient Comments No Oxycodone for 4-5 days, using Tylenol and Ibuprofen instead. driving now. Knee extension stretch feels painful in the joint. Wants help with his posture PT-OP-G Mobility & Gait Start: 01/02/18 14:32 Freq: Status: Active Protocol: Document 01/02/18 14:32 SAK (Rec: 01/02/18 17:11 SAK [id number]) OP Gait Assessment Gait Gait Assistance Required: Independent Assistive Devices Assistive Device Standard Walker Gait Deviations General Gait Pattern Antalgic Factors Limiting Gait Function Factors Limiting Gait Function Pain PT-OP-K Range of Motion Start: 01/02/18 14:32 Freq: Status: Active Protocol: Document 01/23/18 10:15 GGD (Rec: 01/23/18 10:22 GGD [email or web address]) Knee Goniometric Range of Motion Knee Measured in Degrees Right Flexion Active (degrees) 127 Extension Active (degrees) 3 PT-OP-M Strength Start: 01/02/18 14:32 Freq: Status: Active Protocol: Document 01/02/18 14:32 SAK (Rec: 01/02/18 17:11 SAK [id number]) Knee Strength Knee Manual Muscle Testing Right Comments extensor lag requiring mod assist with SAQ and SLR PT-OP-Q Treatments Start: 01/02/18 14:32 Freq: Status: Active Protocol: Document 01/30/18 11:17 SAK (Rec: 01/30/18 11:30 SAK [id number]) Cardio Equipment Recumbent Stepper (Sci-Fit) Duration (Minutes) 5 Resistance 2 Bicycle (Upright) Duration (Minutes) 5 Resistance 4 Seat Position 5 Gym Equipment Shuttle Recovery Unilateral Squats Resistance 67# Shuttle Recovery Platform Stable Reps/Time 15 Bilateral Squats Resistance 87# Shuttle Recovery Platform Stable Reps/Time 30 Therapeutic Exercises Supine Exercises 5 Supine Exercise Name Pelvic tilt, glut set 4 Supine Exercise Name Jason stretch Side bilateral Comments Did not report feeling significant stretch 3 Supine Exercise Name SAQ Side bilateral Comments comparing sides Sitting Exercises 2 Sitting Exercise Name LAQ Reps/Minutes 20 Standing Exercises 6 Standing Exercise Name postural isometric Equipment Used wall Gait Training Gait Activity 1 Description gait with emphasis on upright posture, elimnate limp Device Used none Surface level Comments mirror for visual feedback Manual Therapy Treatment Soft Tissue Mobilization 2 Body Location Along VMO Mobilization Type Rolling Intensity/Depth Moderate PT-OP-R Modalities Start: 01/02/18 14:32 Freq: Status: Active Protocol: Document 01/30/18 11:17 SAK (Rec: 01/30/18 11:30 [facility] [id number]) Electric Stimulation Electric Stimulation Interferential Current (IFC) Body Location right knee Duration (Minutes) 15 Intensity 26 Target/Sweep Sweep Patient Position Supine Combined With Heat/Cold Cold Pack Comments Right LE in extension for 5 min and then with roll under knee. PT-OP-T Assessment and Plan Start: 01/02/18 14:32 Freq: Status: Active Protocol: Document 01/30/18 11:17 [facility] (Rec: 01/30/18 12:23 [facility] [id number]) Physical Therapy Assessment Goals Three Impairment strength Client Services Account Manager Goal (LTG) right knee strength at least 4 +/5 LTG Duration 8 wks Two Impairment antalgic gait, requires use of walker Client Services Account Manager Goal (LTG) Patient able to ambulate on level surfaces and stairs ( alternating pattern) without assistive device without significant limp LTG Duration 8 wks One Impairment ROM Client Services Account Manager Goal (LTG) Improve right knee AROM to 0- 120 LTG Duration 8 wks Assessment Summary Assessment -2 to 128 AAROM. Instructed patient to discontinue knee extension stretch with weight due to pain in knee joint, good improvements in ROM. Physical Therapy Plan Frequency and Duration Frequency of Treatment 2x/Week Duration of Treatment 8 wks Plan of Care Start Date 01/02/18 Plan of Care End Date 03/05/18 Therapeutic Interventions Therapeutic Interventions Gait Training Home Exercise Program Manual Therapy Neuromuscular Re-education Patient/Caregiver Education Self-Care/Home Management Soft Tissue Mobilization Taping Therapeutic Activities Therapeutic Exercises Modalities Cold Pack/Ice Massage Electric Stimulation Other Therapeutic Interventions Possible aquatic therapy when incision healed and approved by physician Next Visit Focus/Plan Next Note Type Treatment Note Next Visit Plan Progress knee strengthening, add HS curl with theraband, emphasize postural alignment and core stabilization with all exercises.
--- NOTE | 2018-02-06 11:46 | PT.OTN ---
Current Diagnoses Presence of right artificial knee joint (02/06/18) Physical Therapy Treatment Note PT-OP-A Visit Information Start: 01/02/18 14:32 Freq: Status: Active Protocol: Document 02/06/18 11:15 GGD (Rec: 02/06/18 11:46 GGD [email or web address]) Out-Patient Physical Therapy Visit Information Visit Information Visit Type Treatment Note Visit Start Time 10:30 Visit Stop Time 11:25 Visit Number 7 Number of FLOOR HAND Visits 1 PT-OP-B Current Condition Start: 01/02/18 14:32 Freq: Status: Active Protocol: Document 01/02/18 14:32 SAK (Rec: 01/02/18 15:20 SAK [id number]) Current Condition History of Current Condition Onset Date 01/07/18. Current Complaints Right uni-compartmental knee arthroplasty. History of Current Condition Uni-compartmental knee arthroplsty 12/28/17. Reports compliant to HEP, dressing has loosened on one side but he has been taping it closed for shower. Drainage has increased but no leaking. States he got a cold after surgery, better today; started as a chest cold, fever of 99 for 1 day. Has not called surgeon regarding either dressing or cold. Unable to lift LE by himself. Enough pain that he has difficulty sleeping, plus the cold. Prior to surgery ambulated with cane. Future Testing and Treatments Planned Plan is for left knee surgery after recovered from right. Treatment Goals Patient/Caregiver Goals Improve ROM, strength, gait. Prep for left TKA. Prior Functional Status Baseline Function- ADL's Independent Baseline Function- Mobility Independent Baseline Function- Gait Independent, limited distance, used cane due to bilateral knee pn Baseline Function- Recreation/Hobbies photography Baseline Function- Other stairs alternating pattern Current Functional Impairments (Reported) Functional Limitations- Mobility/Gait using walker Functional Limitations- Other step-to on stairs PT-OP-C Subjective Start: 01/02/18 14:32 Freq: Status: Active Protocol: Document 02/06/18 11:15 GGD (Rec: 02/06/18 11:46 GGD [email or web address]) OP-PT Subjective Patient Comments Patient Comments Pt states that he is sore today after sitting a lot for work. PT-OP-G Mobility & Gait Start: 01/02/18 14:32 Freq: Status: Active Protocol: Document 01/02/18 14:32 SAK (Rec: 01/02/18 17:11 SAK [id number]) OP Gait Assessment Gait Gait Assistance Required: Independent Assistive Devices Assistive Device Standard Walker Gait Deviations General Gait Pattern Antalgic Factors Limiting Gait Function Factors Limiting Gait Function Pain PT-OP-K Range of Motion Start: 01/02/18 14:32 Freq: Status: Active Protocol: Document 01/23/18 10:15 GGD (Rec: 01/23/18 10:22 GGD [email or web address]) Knee Goniometric Range of Motion Knee Measured in Degrees Right Flexion Active (degrees) 127 Extension Active (degrees) 3 PT-OP-M Strength Start: 01/02/18 14:32 Freq: Status: Active Protocol: Document 01/02/18 14:32 SAK (Rec: 01/02/18 17:11 SAK [id number]) Knee Strength Knee Manual Muscle Testing Right Comments extensor lag requiring mod assist with SAQ and SLR PT-OP-Q Treatments Start: 01/02/18 14:32 Freq: Status: Active Protocol: Document 02/06/18 11:15 GGD (Rec: 02/06/18 11:46 GGD [email or web address]) Cardio Equipment Recumbent Stepper (Sci-Fit) Duration (Minutes) 5 Resistance 2 Bicycle (Upright) Duration (Minutes) 5 Resistance 4 Seat Position 5 Gym Equipment Cable Column (Body Solid) Leg Extension Resistance 1 plate Reps/Time 30 Shuttle Recovery Unilateral Squats Resistance 67# Shuttle Recovery Platform Stable Reps/Time 15 Bilateral Squats Resistance 100# Shuttle Recovery Platform Stable Reps/Time 30 Gait Training Gait Activity 2 Description 4 and 6 stairs Device Used rail Level of Assistance cues Manual Therapy Treatment Soft Tissue Mobilization 2 Body Location Along VMO Mobilization Type Rolling Intensity/Depth Moderate PT-OP-R Modalities Start: 01/02/18 14:32 Freq: Status: Active Protocol: Document 02/06/18 11:15 GGD (Rec: 02/06/18 11:46 GGD [email or web address]) Electric Stimulation Electric Stimulation Interferential Current (IFC) Body Location right knee Duration (Minutes) 15 Intensity 26 Target/Sweep Sweep Patient Position Supine Combined With Heat/Cold Cold Pack Comments Right LE in extension for 5 min and then with roll under knee. PT-OP-T Assessment and Plan Start: 01/02/18 14:32 Freq: Status: Active Protocol: Document 02/06/18 11:15 GGD (Rec: 02/06/18 11:46 GGD [email or web address]) Physical Therapy Assessment Assessment Summary Assessment Pt improving with strength. He had need cues for stair with 6 in greater than 4 in. Physical Therapy Plan Frequency and Duration Frequency of Treatment 2x/Week Duration of Treatment 8 wks Plan of Care Start Date 01/02/18 Plan of Care End Date 03/05/18 Therapeutic Interventions Therapeutic Interventions Gait Training Home Exercise Program Manual Therapy Neuromuscular Re-education Patient/Caregiver Education Self-Care/Home Management Soft Tissue Mobilization Taping Therapeutic Activities Therapeutic Exercises Modalities Cold Pack/Ice Massage Electric Stimulation Other Therapeutic Interventions Possible aquatic therapy when incision healed and approved by physician Next Visit Focus/Plan Next Note Type Treatment Note Next Visit Plan Progress knee strengthening, add HS curl, postural alignment and core stabilization with all exercises.
--- NOTE | 2018-02-09 11:15 | PT.OTN ---
Current Diagnoses Presence of right artificial knee joint (02/09/18) Physical Therapy Treatment Note PT-OP-A Visit Information Start: 01/02/18 14:32 Freq: Status: Active Protocol: Document 02/09/18 11:15 RCC (Rec: 02/09/18 13:41 RCC [email or web address]) Out-Patient Physical Therapy Visit Information Visit Information Visit Type Treatment Note Visit Start Time 10:30 Visit Stop Time 11:30 Visit Number 8 Number of LOADING MACHINE ADJUSTER Visits 0 PT-OP-B Current Condition Start: 01/02/18 14:32 Freq: Status: Active Protocol: Document 01/02/18 14:32 SAK (Rec: 01/02/18 15:20 SAK [id number]) Current Condition History of Current Condition Onset Date 01/07/18. Current Complaints Right uni-compartmental knee arthroplasty. History of Current Condition Uni-compartmental knee arthroplsty 12/28/17. Reports compliant to HEP, dressing has loosened on one side but he has been taping it closed for shower. Drainage has increased but no leaking. States he got a cold after surgery, better today; started as a chest cold, fever of 99 for 1 day. Has not called surgeon regarding either dressing or cold. Unable to lift LE by himself. Enough pain that he has difficulty sleeping, plus the cold. Prior to surgery ambulated with cane. Future Testing and Treatments Planned Plan is for left knee surgery after recovered from right. Treatment Goals Patient/Caregiver Goals Improve ROM, strength, gait. Prep for left TKA. Prior Functional Status Baseline Function- ADL's Independent Baseline Function- Mobility Independent Baseline Function- Gait Independent, limited distance, used cane due to bilateral knee pn Baseline Function- Recreation/Hobbies photography Baseline Function- Other stairs alternating pattern Current Functional Impairments (Reported) Functional Limitations- Mobility/Gait using walker Functional Limitations- Other step-to on stairs PT-OP-C Subjective Start: 01/02/18 14:32 Freq: Status: Active Protocol: Document 02/09/18 11:15 RCC (Rec: 02/09/18 13:41 RCC [email or web address]) OP-PT Subjective Patient Comments Patient Comments Pt notes that he was sore from going up and down the stairs a lot more at home. PT-OP-D Balance Start: 01/02/18 14:32 Freq: Status: Active Protocol: Document 02/09/18 11:15 RCC (Rec: 02/09/18 13:41 RCC [email or web address]) Balance Tests Single Limb Standing Single Limb- Right 3 sec Single Limb- Left 10 sec PT-OP-G Mobility & Gait Start: 01/02/18 14:32 Freq: Status: Active Protocol: Document 01/02/18 14:32 SAK (Rec: 01/02/18 17:11 SAK [id number]) OP Gait Assessment Gait Gait Assistance Required: Independent Assistive Devices Assistive Device Standard Walker Gait Deviations General Gait Pattern Antalgic Factors Limiting Gait Function Factors Limiting Gait Function Pain PT-OP-K Range of Motion Start: 01/02/18 14:32 Freq: Status: Active Protocol: Document 02/09/18 11:15 RCC (Rec: 02/09/18 13:41 RCC [email or web address]) Knee Goniometric Range of Motion Knee Measured in Degrees Right Extension Active (degrees) 3 Extension Passive (degrees) 1 Knee ROM Limitations Comments R knee to 0 degrees with PROM after manual therapy PT-OP-M Strength Start: 01/02/18 14:32 Freq: Status: Active Protocol: Document 01/02/18 14:32 SAK (Rec: 01/02/18 17:11 SAK [id number]) Knee Strength Knee Manual Muscle Testing Right Comments extensor lag requiring mod assist with SAQ and SLR PT-OP-Q Treatments Start: 01/02/18 14:32 Freq: Status: Active Protocol: Document 02/09/18 11:15 RCC (Rec: 02/09/18 13:41 RCC [email or web address]) Cardio Equipment Recumbent Stepper (Sci-Fit) Duration (Minutes) 6 Resistance 3 Gym Equipment Shuttle Recovery Unilateral Squats Resistance 50# Shuttle Recovery Platform Stable Reps/Time 15 Bilateral Squats Resistance 100# Shuttle Recovery Platform Stable Reps/Time 30 Shuttle Balance 1 Details RED- DL and semi-tandem A/P Therapeutic Exercises Standing Exercises 5 Standing Exercise Name TKE Resistance L2 Reps/Minutes 30 3 Standing Exercise Name HS stretch on stairs Side bilateral 2 Standing Exercise Name BRIANNA gastroc/soleus stretch Side bilateral Manual Therapy Treatment Soft Tissue Mobilization 2 Body Location Along VMO Mobilization Type Rolling Intensity/Depth Moderate Joint Mobilizations 1 Joint R PF Direction inferior and superior Grade III Body Position Supine Neuro Re-Education Treatment Balance Activities 1 Details SL balance Surface firm and hubbard foam Equipment // bars PT-OP-R Modalities Start: 01/02/18 14:32 Freq: Status: Active Protocol: Document 02/09/18 11:15 RCC (Rec: 02/09/18 13:41 RCC [email or web address]) Electric Stimulation Electric Stimulation Interferential Current (IFC) Body Location right knee Duration (Minutes) 15 Patient Position Supine Combined With Heat/Cold Cold Pack PT-OP-T Assessment and Plan Start: 01/02/18 14:32 Freq: Status: Active Protocol: Document 02/09/18 11:15 RCC (Rec: 02/09/18 13:41 [facility] [email or web address]) Physical Therapy Assessment Assessment Summary Assessment Pt with impaired SL standing balance on the RLE without c/o pain. His ROM still continues to be limited in extension, but able to achieve 0 deg after manual therapy with PROM . Physical Therapy Plan Frequency and Duration Frequency of Treatment 2x/Week Duration of Treatment 8 wks Plan of Care Start Date 01/02/18 Plan of Care End Date 03/05/18 Next Visit Focus/Plan Next Note Type Treatment Note Next Visit Plan balance/proprioception, R knee ROM (extension), and strength .
--- NOTE | 2018-02-13 12:10 | PT.OTN ---
Current Diagnoses Presence of right artificial knee joint (02/13/18) Physical Therapy Treatment Note PT-OP-A Visit Information Start: 01/02/18 14:32 Freq: Status: Active Protocol: Document 02/13/18 11:14 [facility] (Rec: 02/13/18 12:10 [facility] [id number]) Out-Patient Physical Therapy Visit Information Visit Information Visit Type Treatment Note Visit Start Time 11:15 Visit Stop Time 12:15 Visit Number 9 Number of VARNISH MELTER Visits 0 PT-OP-B Current Condition Start: 01/02/18 14:32 Freq: Status: Active Protocol: Document 01/02/18 14:32 [facility] (Rec: 01/02/18 15:20 [facility] [id number]) Current Condition History of Current Condition Onset Date 01/07/18. Current Complaints Right uni-compartmental knee arthroplasty. History of Current Condition Uni-compartmental knee arthroplsty 12/28/17. Reports compliant to HEP, dressing has loosened on one side but he has been taping it closed for shower. Drainage has increased but no leaking. States he got a cold after surgery, better today; started as a chest cold, fever of 99 for 1 day. Has not called surgeon regarding either dressing or cold. Unable to lift LE by himself. Enough pain that he has difficulty sleeping, plus the cold. Prior to surgery ambulated with cane. Future Testing and Treatments Planned Plan is for left knee surgery after recovered from right. Treatment Goals Patient/Caregiver Goals Improve ROM, strength, gait. Prep for left TKA. Prior Functional Status Baseline Function- ADL's Independent Baseline Function- Mobility Independent Baseline Function- Gait Independent, limited distance, used cane due to bilateral knee pn Baseline Function- Recreation/Hobbies photography Baseline Function- Other stairs alternating pattern Current Functional Impairments (Reported) Functional Limitations- Mobility/Gait using walker Functional Limitations- Other step-to on stairs PT-OP-C Subjective Start: 01/02/18 14:32 Freq: Status: Active Protocol: Document 02/13/18 11:14 [facility] (Rec: 02/13/18 12:10 [facility] [id number]) OP-PT Subjective Patient Comments Patient Comments No new c/o. States he figured out that he gets stiff when sitting, causing the stairs PT-OP-D Balance Start: 01/02/18 14:32 Freq: Status: Active Protocol: Document 02/09/18 11:15 RCC (Rec: 02/09/18 13:41 RCC [email or web address]) Balance Tests Single Limb Standing Single Limb- Right 3 sec Single Limb- Left 10 sec PT-OP-G Mobility & Gait Start: 01/02/18 14:32 Freq: Status: Active Protocol: Document 01/02/18 14:32 SAK (Rec: 01/02/18 17:11 SAK [id number]) OP Gait Assessment Gait Gait Assistance Required: Independent Assistive Devices Assistive Device Standard Walker Gait Deviations General Gait Pattern Antalgic Factors Limiting Gait Function Factors Limiting Gait Function Pain PT-OP-K Range of Motion Start: 01/02/18 14:32 Freq: Status: Active Protocol: Document 02/09/18 11:15 RCC (Rec: 02/09/18 13:41 RCC [email or web address]) Knee Goniometric Range of Motion Knee Measured in Degrees Right Extension Active (degrees) 3 Extension Passive (degrees) 1 Knee ROM Limitations Comments R knee to 0 degrees with PROM after manual therapy PT-OP-M Strength Start: 01/02/18 14:32 Freq: Status: Active Protocol: Document 01/02/18 14:32 SAK (Rec: 01/02/18 17:11 SAK [id number]) Knee Strength Knee Manual Muscle Testing Right Comments extensor lag requiring mod assist with SAQ and SLR PT-OP-Q Treatments Start: 01/02/18 14:32 Freq: Status: Active Protocol: Document 02/13/18 11:14 SAK (Rec: 02/13/18 12:10 SAK [id number]) Cardio Equipment Recumbent Stepper (Sci-Fit) Duration (Minutes) 7 Resistance 4 Gym Equipment Shuttle Recovery Unilateral Squats Resistance 50# Shuttle Recovery Platform Stable Reps/Time 15 Bilateral Squats Resistance 100# Shuttle Recovery Platform Stable Reps/Time 30 Shuttle Balance 1 Details RED- DL and semi-tandem A/P Comments also weight shifts front/back, side/side Therapeutic Exercises Sitting Exercises 3 Sitting Exercise Name hamstring curl Resistance 40#, 50# Reps/Minutes 15 x 2 Standing Exercises 5 Standing Exercise Name TKE Resistance L2 Reps/Minutes 30 3 Standing Exercise Name HS stretch on stairs Side bilateral 2 Standing Exercise Name BRIANNA gastroc/soleus stretch Side bilateral Gait Training Gait Activity 2 Description 4 and 6 stairs Device Used rail Level of Assistance cues Manual Therapy Treatment Soft Tissue Mobilization 2 Body Location Along VMO Mobilization Type Rolling Intensity/Depth Moderate Joint Mobilizations 1 Joint R PF Direction inferior and superior Grade III Body Position Supine Neuro Re-Education Treatment Balance Activities 2 Details MENA lay PT-OP-R Modalities Start: 01/02/18 14:32 Freq: Status: Active Protocol: Document 02/13/18 11:14 [facility] (Rec: 02/13/18 12:10 [facility] [id number]) Electric Stimulation Electric Stimulation Interferential Current (IFC) Body Location right knee Duration (Minutes) 15 Patient Position Supine Combined With Heat/Cold Cold Pack PT-OP-T Assessment and Plan Start: 01/02/18 14:32 Freq: Status: Active Protocol: Document 02/13/18 11:14 [facility] (Rec: 02/13/18 12:10 [facility] [id number]) Physical Therapy Assessment Assessment Summary Assessment Progressing with ther ex, ROM. Physical Therapy Plan Frequency and Duration Frequency of Treatment 2x/Week Duration of Treatment 8 wks Plan of Care Start Date 01/02/18 Plan of Care End Date 03/05/18 Therapeutic Interventions Therapeutic Interventions Gait Training Home Exercise Program Manual Therapy Neuromuscular Re-education Patient/Caregiver Education Self-Care/Home Management Soft Tissue Mobilization Taping Therapeutic Activities Therapeutic Exercises Modalities Cold Pack/Ice Massage Electric Stimulation Other Therapeutic Interventions Possible aquatic therapy when incision healed and approved by physician Next Visit Focus/Plan Next Note Type Treatment Note Next Visit Plan balance/proprioception, R knee ROM (extension), and strength .
--- NOTE | 2018-02-16 16:18 | PT.OTN ---
Current Diagnoses Presence of right artificial knee joint (02/16/18) Physical Therapy Treatment Note PT-OP-A Visit Information Start: 01/02/18 14:32 Freq: Status: Active Protocol: Document 02/16/18 08:59 [facility] (Rec: 02/16/18 09:49 [facility] [id number]) Out-Patient Physical Therapy Visit Information Visit Information Visit Type Treatment Note Visit Start Time 09:00 Visit Stop Time 10:00 Total Visit Minutes 60 Visit Number 10 Number of VP COMPLIANCE Visits 0 PT-OP-B Current Condition Start: 01/02/18 14:32 Freq: Status: Active Protocol: Document 01/02/18 14:32 [facility]AK (Rec: 01/02/18 15:20 [facility] [id number]) Current Condition History of Current Condition Onset Date 01/07/18. Current Complaints Right uni-compartmental knee arthroplasty. History of Current Condition Uni-compartmental knee arthroplsty 12/28/17. Reports compliant to HEP, dressing has loosened on one side but he has been taping it closed for shower. Drainage has increased but no leaking. States he got a cold after surgery, better today; started as a chest cold, fever of 99 for 1 day. Has not called surgeon regarding either dressing or cold. Unable to lift LE by himself. Enough pain that he has difficulty sleeping, plus the cold. Prior to surgery ambulated with cane. Future Testing and Treatments Planned Plan is for left knee surgery after recovered from right. Treatment Goals Patient/Caregiver Goals Improve ROM, strength, gait. Prep for left TKA. Prior Functional Status Baseline Function- ADL's Independent Baseline Function- Mobility Independent Baseline Function- Gait Independent, limited distance, used cane due to bilateral knee pn Baseline Function- Recreation/Hobbies photography Baseline Function- Other stairs alternating pattern Current Functional Impairments (Reported) Functional Limitations- Mobility/Gait using walker Functional Limitations- Other step-to on stairs PT-OP-C Subjective Start: 01/02/18 14:32 Freq: Status: Active Protocol: Document 02/16/18 08:59 [facility] (Rec: 02/16/18 09:49 [facility] [id number]) OP-PT Subjective Patient Comments Patient Comments hamstring curl resulted in cramping the night of last session;. No Ibuprofen for 3 days. Recommendation to do a few exercises to get blood flowing before walking up stairs helpful, much easier. PT-OP-D Balance Start: 01/02/18 14:32 Freq: Status: Active Protocol: Document 02/09/18 11:15 [facility] (Rec: 02/09/18 13:41 [facility] [id number]) Balance Tests Single Limb Standing Single Limb- Right 3 sec Single Limb- Left 10 sec PT-OP-G Mobility & Gait Start: 01/02/18 14:32 Freq: Status: Active Protocol: Document 01/02/18 14:32 SAK (Rec: 01/02/18 17:11 SAK [id number]) OP Gait Assessment Gait Gait Assistance Required: Independent Assistive Devices Assistive Device Standard Walker Gait Deviations General Gait Pattern Antalgic Factors Limiting Gait Function Factors Limiting Gait Function Pain PT-OP-K Range of Motion Start: 01/02/18 14:32 Freq: Status: Active Protocol: Document 02/09/18 11:15 [facility] (Rec: 02/09/18 13:41 [facility] [id number]) Knee Goniometric Range of Motion Knee Measured in Degrees Right Extension Active (degrees) 3 Extension Passive (degrees) 1 Knee ROM Limitations Comments R knee to 0 degrees with PROM after manual therapy PT-OP-M Strength Start: 01/02/18 14:32 Freq: Status: Active Protocol: Document 01/02/18 14:32 SAK (Rec: 01/02/18 17:11 [facility]AK [id number]) Knee Strength Knee Manual Muscle Testing Right Comments extensor lag requiring mod assist with SAQ and SLR PT-OP-Q Treatments Start: 01/02/18 14:32 Freq: Status: Active Protocol: Document 02/16/18 08:59 SAK (Rec: 02/16/18 09:49 [facility] [id number]) Cardio Equipment Recumbent Stepper (Sci-Fit) Duration (Minutes) 8 Resistance 4 Treadmill Duration (Minutes) 2 Speed 1.2 Other stopped due to back pain Gym Equipment Shuttle Recovery Unilateral Squats Resistance 50# Shuttle Recovery Platform Unstable Reps/Time 15x2 Bilateral Squats Details unstable second set Resistance 100# Shuttle Recovery Platform Stable Reps/Time 15x2 Shuttle Balance 1 Details RED- DL and semi-tandem A/P Comments also weight shifts front/back, side/side Therapeutic Exercises Sitting Exercises 3 Sitting Exercise Name hamstring ; wilbur and unil Resistance 50#, 25# Reps/Minutes 15 x 2 Standing Exercises 5 Standing Exercise Name TKE Resistance L2 Reps/Minutes 30 3 Standing Exercise Name HS stretch on stairs Side bilateral 2 Standing Exercise Name BRIANNA gastroc/soleus stretch Side bilateral Manual Therapy Treatment Soft Tissue Mobilization 3 Body Location scar massage Intensity/Depth Moderate Joint Mobilizations 1 Joint R PF Direction inferior and superior Grade III Body Position Supine PT-OP-R Modalities Start: 01/02/18 14:32 Freq: Status: Active Protocol: Document 02/16/18 08:59 [facility] (Rec: 02/16/18 09:49 [facility] [id number]) Electric Stimulation Electric Stimulation Interferential Current (IFC) Body Location right knee Duration (Minutes) 15 Patient Position Supine Combined With Heat/Cold Cold Pack PT-OP-T Assessment and Plan Start: 01/02/18 14:32 Freq: Status: Active Protocol: Document 02/16/18 08:59 [facility] (Rec: 02/16/18 09:49 [facility] [id number]) Physical Therapy Assessment Goals Three Impairment strength Prison Goal (LTG) right knee strength at least 4 +/5 LTG Duration 8 wks Two Impairment antalgic gait, requires use of walker Physician'S Assistant Goal (LTG) Patient able to ambulate on level surfaces and stairs ( alternating pattern) without assistive device without significant limp LTG Duration 8 wks One Impairment ROM Physician'S Assistant Goal (LTG) Improve right knee AROM to 0- 120 LTG Duration 8 wks Progress Towards Goals Progress Towards Goals Progressing Toward Goals Assessment Summary Assessment Tolerated progression of ther ex well today. No pain meds past few days. Discussed benefits of aquatic exercise with patient Physical Therapy Plan Frequency and Duration Frequency of Treatment 2x/Week Duration of Treatment 8 wks Plan of Care Start Date 01/02/18 Plan of Care End Date 03/05/18 Therapeutic Interventions Therapeutic Interventions Gait Training Home Exercise Program Manual Therapy Neuromuscular Re-education Patient/Caregiver Education Self-Care/Home Management Soft Tissue Mobilization Taping Therapeutic Activities Therapeutic Exercises Modalities Cold Pack/Ice Massage Electric Stimulation Other Therapeutic Interventions Possible aquatic therapy when incision healed and approved by physician Next Visit Focus/Plan Next Note Type Treatment Note Next Visit Plan Continue progression of TKA rehab.
--- NOTE | 2018-02-23 14:56 | PT.OTN ---
Current Diagnoses Presence of right artificial knee joint (02/23/18) Physical Therapy Treatment Note PT-OP-A Visit Information Start: 01/02/18 14:32 Freq: Status: Active Protocol: Document 02/23/18 09:08 [facility] (Rec: 02/23/18 09:[address] [facility] [id number]) Out-Patient Physical Therapy Visit Information Visit Information Visit Type Treatment Note Visit Start Time 09:00 Visit Stop Time 10:00 Total Visit Minutes 60 Visit Number 11 Number of CHICKEN FANCIER Visits 0 PT-OP-B Current Condition Start: 01/02/18 14:32 Freq: Status: Active Protocol: Document 01/02/18 14:32 SAK (Rec: 01/02/18 15:20 [facility] [id number]) Current Condition History of Current Condition Onset Date 01/07/18. Current Complaints Right uni-compartmental knee arthroplasty. History of Current Condition Uni-compartmental knee arthroplsty 12/28/17. Reports compliant to HEP, dressing has loosened on one side but he has been taping it closed for shower. Drainage has increased but no leaking. States he got a cold after surgery, better today; started as a chest cold, fever of 99 for 1 day. Has not called surgeon regarding either dressing or cold. Unable to lift LE by himself. Enough pain that he has difficulty sleeping, plus the cold. Prior to surgery ambulated with cane. Future Testing and Treatments Planned Plan is for left knee surgery after recovered from right. Treatment Goals Patient/Caregiver Goals Improve ROM, strength, gait. Prep for left TKA. Prior Functional Status Baseline Function- ADL's Independent Baseline Function- Mobility Independent Baseline Function- Gait Independent, limited distance, used cane due to bilateral knee pn Baseline Function- Recreation/Hobbies photography Baseline Function- Other stairs alternating pattern Current Functional Impairments (Reported) Functional Limitations- Mobility/Gait using walker Functional Limitations- Other step-to on stairs PT-OP-C Subjective Start: 01/02/18 14:32 Freq: Status: Active Protocol: Document 02/23/18 09:08 [facility] (Rec: 02/23/18 09:44 [facility] [id number]) OP-PT Subjective Patient Comments Patient Comments Asking for help managing expectations regarding his knee pain and back pain; very painful after loading book boxes. PT-OP-D Balance Start: 01/02/18 14:32 Freq: Status: Active Protocol: Document 02/09/18 11:15 [facility] (Rec: 02/09/18 13:41 [facility] [email or web address]) Balance Tests Single Limb Standing Single Limb- Right 3 sec Single Limb- Left 10 sec PT-OP-G Mobility & Gait Start: 01/02/18 14:32 Freq: Status: Active Protocol: Document 01/02/18 14:32 [facility] (Rec: 01/02/18 17:11 [facility] [id number]) OP Gait Assessment Gait Gait Assistance Required: Independent Assistive Devices Assistive Device Standard Walker Gait Deviations General Gait Pattern Antalgic Factors Limiting Gait Function Factors Limiting Gait Function Pain PT-OP-K Range of Motion Start: 01/02/18 14:32 Freq: Status: Active Protocol: Document 02/09/18 11:15 [facility] (Rec: 02/09/18 13:41 [facility] [id number]) Knee Goniometric Range of Motion Knee Measured in Degrees Right Extension Active (degrees) 3 Extension Passive (degrees) 1 Knee ROM Limitations Comments R knee to 0 degrees with PROM after manual therapy PT-OP-M Strength Start: 01/02/18 14:32 Freq: Status: Active Protocol: Document 01/02/18 14:32 SAK (Rec: 01/02/18 17:11 SAK [id number]) Knee Strength Knee Manual Muscle Testing Right Comments extensor lag requiring mod assist with SAQ and SLR PT-OP-Q Treatments Start: 01/02/18 14:32 Freq: Status: Active Protocol: Document 02/23/18 09:08 [facility]AK (Rec: 02/23/18 09:44 [facility] [id number]) Cardio Equipment Recumbent Stepper (Sci-Fit) Duration (Minutes) 10 Resistance 2.5 Gym Equipment Shuttle Recovery Unilateral Squats Resistance 50# Shuttle Recovery Platform Unstable Reps/Time 15x2 Bilateral Squats Resistance 100# Shuttle Recovery Platform Unstable Reps/Time 15x2 Shuttle Balance 1 Details RED- DL and semi-tandem A/P Comments also weight shifts front/back, side/side Therapeutic Exercises Supine Exercises 6 Supine Exercise Name bridge Reps/Minutes 10 3 Supine Exercise Name SAQ Side bilateral Resistance 2# Comments comparing sides Sidelying Exercises 1 Sidelying Exercise Name Hip ABD Reps/Minutes 10 Sitting Exercises 3 Sitting Exercise Name hamstring ; wilbur and unil Resistance 50#, 25# Reps/Minutes 15 x 2 2 Sitting Exercise Name LAQ Reps/Minutes 20 1 Sitting Exercise Name seated knee flex with scoot fwd Reps/Minutes 4 PT-OP-R Modalities Start: 01/02/18 14:32 Freq: Status: Active Protocol: Document 02/23/18 09:08 [facility] (Rec: 02/23/18 14:56 [facility] [id number]) Electric Stimulation Electric Stimulation Interferential Current (IFC) Body Location right knee Duration (Minutes) 15 Patient Position Supine Combined With Heat/Cold Cold Pack PT-OP-T Assessment and Plan Start: 01/02/18 14:32 Freq: Status: Active Protocol: Document 02/23/18 09:08 [facility] (Rec: 02/23/18 14:56 [facility] [id number]) Physical Therapy Assessment Goals Three Impairment strength Salvage Supervisor Goal (LTG) right knee strength at least 4 +/5 LTG Duration 8 wks Two Impairment antalgic gait, requires use of walker Salvage Supervisor Goal (LTG) Patient able to ambulate on level surfaces and stairs ( alternating pattern) without assistive device without significant limp LTG Duration 8 wks One Impairment ROM Salvage Supervisor Goal (LTG) Improve right knee AROM to 0- 120 LTG Duration 8 wks Progress Towards Goals Progress Comments Good progress with TKA rehab, compliant to HEP. Addition of trunk exercises helpful for trunk stability and activity tolerance. Physical Therapy Plan Frequency and Duration Frequency of Treatment 2x/Week Duration of Treatment 8 wks Plan of Care Start Date 01/02/18 Plan of Care End Date 03/05/18 Therapeutic Interventions Therapeutic Interventions Gait Training Home Exercise Program Manual Therapy Neuromuscular Re-education Patient/Caregiver Education Self-Care/Home Management Soft Tissue Mobilization Taping Therapeutic Activities Therapeutic Exercises Modalities Cold Pack/Ice Massage Electric Stimulation Other Therapeutic Interventions Possible aquatic therapy when incision healed and approved by physician Next Visit Focus/Plan Next Note Type Treatment Note Next Visit Plan Continue progression of TKA rehab.
--- NOTE | 2018-02-27 15:10 | PT.OTN ---
Current Diagnoses Presence of right artificial knee joint (02/27/18) Physical Therapy Treatment Note PT-OP-A Visit Information Start: 01/02/18 14:32 Freq: Status: Active Protocol: Document 02/27/18 09:49 [facility] (Rec: 02/27/18 10:31 SAK [id number]) Out-Patient Physical Therapy Visit Information Visit Information Visit Type Treatment Note Visit Start Time 09:45 Visit Stop Time 10:30 Total Visit Minutes 60 Visit Number 12 Number of VP RESPIRATORY Visits 0 PT-OP-B Current Condition Start: 01/02/18 14:32 Freq: Status: Active Protocol: Document 01/02/18 14:32 SAK (Rec: 01/02/18 15:20 SAK [id number]) Current Condition History of Current Condition Onset Date 01/07/18. Current Complaints Right uni-compartmental knee arthroplasty. History of Current Condition Uni-compartmental knee arthroplsty 12/28/17. Reports compliant to HEP, dressing has loosened on one side but he has been taping it closed for shower. Drainage has increased but no leaking. States he got a cold after surgery, better today; started as a chest cold, fever of 99 for 1 day. Has not called surgeon regarding either dressing or cold. Unable to lift LE by himself. Enough pain that he has difficulty sleeping, plus the cold. Prior to surgery ambulated with cane. Future Testing and Treatments Planned Plan is for left knee surgery after recovered from right. Treatment Goals Patient/Caregiver Goals Improve ROM, strength, gait. Prep for left TKA. Prior Functional Status Baseline Function- ADL's Independent Baseline Function- Mobility Independent Baseline Function- Gait Independent, limited distance, used cane due to bilateral knee pn Baseline Function- Recreation/Hobbies photography Baseline Function- Other stairs alternating pattern Current Functional Impairments (Reported) Functional Limitations- Mobility/Gait using walker Functional Limitations- Other step-to on stairs PT-OP-C Subjective Start: 01/02/18 14:32 Freq: Status: Active Protocol: Document 02/27/18 09:49 [facility] (Rec: 02/27/18 10:31 [facility] [id number]) OP-PT Subjective Patient Comments Patient Comments Increased soreness in knee joint over the weekend, unsure why except is getting ready to move. Also reporting he got down to floor for the first time, had to use 2 pillows under right knee for cushion. Hasn't take Ibuprofen for 2 wks. PT-OP-D Balance Start: 01/02/18 14:32 Freq: Status: Active Protocol: Document 02/09/18 11:15 [facility] (Rec: 02/09/18 13:41 [facility] [id number]) Balance Tests Single Limb Standing Single Limb- Right 3 sec Single Limb- Left 10 sec PT-OP-G Mobility & Gait Start: 01/02/18 14:32 Freq: Status: Active Protocol: Document 01/02/18 14:32 [facility] (Rec: 01/02/18 17:11 SAK [id number]) OP Gait Assessment Gait Gait Assistance Required: Independent Assistive Devices Assistive Device Standard Walker Gait Deviations General Gait Pattern Antalgic Factors Limiting Gait Function Factors Limiting Gait Function Pain PT-OP-K Range of Motion Start: 01/02/18 14:32 Freq: Status: Active Protocol: Document 02/09/18 11:15 [facility] (Rec: 02/09/18 13:41 [facility] [id number]) Knee Goniometric Range of Motion Knee Measured in Degrees Right Extension Active (degrees) 3 Extension Passive (degrees) 1 Knee ROM Limitations Comments R knee to 0 degrees with PROM after manual therapy PT-OP-M Strength Start: 01/02/18 14:32 Freq: Status: Active Protocol: Document 01/02/18 14:32 [facility] (Rec: 01/02/18 17:11 [facility] [id number]) Knee Strength Knee Manual Muscle Testing Right Comments extensor lag requiring mod assist with SAQ and SLR PT-OP-Q Treatments Start: 01/02/18 14:32 Freq: Status: Active Protocol: Document 02/27/18 09:49 [facility] (Rec: 02/27/18 10:31 SAK [id number]) Cardio Equipment Recumbent Stepper (Sci-Fit) Duration (Minutes) 10 Resistance 2.5 Gym Equipment Shuttle Recovery Unilateral Squats Resistance 50# Shuttle Recovery Platform Unstable Reps/Time 15x2 Bilateral Squats Resistance 100# Shuttle Recovery Platform Unstable Reps/Time 15x2 Shuttle Balance 1 Details RED- DL and semi-tandem A/P Comments also weight shifts front/back, side/side Therapeutic Exercises Supine Exercises 7 Supine Exercise Name hamstring stretch Equipment Used supine on leg press 6 Supine Exercise Name bridge Reps/Minutes 10 3 Supine Exercise Name SAQ Side bilateral Resistance 2# Comments comparing sides Sitting Exercises 3 Sitting Exercise Name hamstring ; wilbur and unil Resistance 50#, 25# Reps/Minutes 15 x 2 2 Sitting Exercise Name LAQ Reps/Minutes 20 1 Sitting Exercise Name seated knee flex with scoot fwd Reps/Minutes 4 Standing Exercises 2 Standing Exercise Name BRIANNA gastroc/soleus stretch Side bilateral Manual Therapy Treatment Soft Tissue Mobilization 3 Body Location scar massage Intensity/Depth Moderate PT-OP-R Modalities Start: 01/02/18 14:32 Freq: Status: Active Protocol: Document 02/27/18 09:49 [facility] (Rec: 02/27/18 15:10 [facility] [id number]) Electric Stimulation Electric Stimulation Interferential Current (IFC) Body Location right knee Duration (Minutes) 15 Patient Position Supine Combined With Heat/Cold Cold Pack PT-OP-T Assessment and Plan Start: 01/02/18 14:32 Freq: Status: Active Protocol: Document 02/27/18 09:49 [facility] (Rec: 02/27/18 15:10 [facility] [id number]) Physical Therapy Assessment Goals Three Impairment strength Shrimp Peeling Machine Operator Goal (LTG) right knee strength at least 4 +/5 LTG Duration 8 wks Two Impairment antalgic gait, requires use of walker Shrimp Peeling Machine Operator Goal (LTG) Patient able to ambulate on level surfaces and stairs ( alternating pattern) without assistive device without significant limp LTG Duration 8 wks One Impairment ROM Shelter Goal (LTG) Improve right knee AROM to 0- 120 LTG Duration 8 wks Progress Towards Goals Progress Comments Decreased exercise tolerance today, appears due to increased activity including kneeling, minimal icing, no Ibuprofen Assessment Summary Assessment Patient demonstrated good understanding of need to increase icing with increase in activity, take Ibuprofen as needed. Physical Therapy Plan Frequency and Duration Frequency of Treatment 2x/Week Duration of Treatment 8 wks Plan of Care Start Date 01/02/18 Plan of Care End Date 03/05/18 Therapeutic Interventions Therapeutic Interventions Gait Training Home Exercise Program Manual Therapy Neuromuscular Re-education Patient/Caregiver Education Self-Care/Home Management Soft Tissue Mobilization Taping Therapeutic Activities Therapeutic Exercises Modalities Cold Pack/Ice Massage Electric Stimulation Other Therapeutic Interventions Possible aquatic therapy when incision healed and approved by physician Next Visit Focus/Plan Next Note Type Treatment Note Next Visit Plan Continue progression of TKA rehab.
--- NOTE | 2018-03-02 14:28 | PT.OTN ---
Current Diagnoses Presence of right artificial knee joint (03/02/18) Physical Therapy Treatment Note PT-OP-A Visit Information Start: 01/02/18 14:32 Freq: Status: Active Protocol: Document 03/02/18 09:04 [facility] (Rec: 03/02/18 09:48 [facility] [id number]) Out-Patient Physical Therapy Visit Information Visit Information Visit Type Treatment Note Visit Start Time 09:00 Visit Stop Time 10:00 Total Visit Minutes 60 Visit Number 13 Number of PIN TICKET MACHINE OPERATOR Visits 0 PT-OP-B Current Condition Start: 01/02/18 14:32 Freq: Status: Active Protocol: Document 01/02/18 14:32 [facility] (Rec: 01/02/18 15:20 [facility] [id number]) Current Condition History of Current Condition Onset Date 01/07/18. Current Complaints Right uni-compartmental knee arthroplasty. History of Current Condition Uni-compartmental knee arthroplsty 12/28/17. Reports compliant to HEP, dressing has loosened on one side but he has been taping it closed for shower. Drainage has increased but no leaking. States he got a cold after surgery, better today; started as a chest cold, fever of 99 for 1 day. Has not called surgeon regarding either dressing or cold. Unable to lift LE by himself. Enough pain that he has difficulty sleeping, plus the cold. Prior to surgery ambulated with cane. Future Testing and Treatments Planned Plan is for left knee surgery after recovered from right. Treatment Goals Patient/Caregiver Goals Improve ROM, strength, gait. Prep for left TKA. Prior Functional Status Baseline Function- ADL's Independent Baseline Function- Mobility Independent Baseline Function- Gait Independent, limited distance, used cane due to bilateral knee pn Baseline Function- Recreation/Hobbies photography Baseline Function- Other stairs alternating pattern Current Functional Impairments (Reported) Functional Limitations- Mobility/Gait using walker Functional Limitations- Other step-to on stairs PT-OP-C Subjective Start: 01/02/18 14:32 Freq: Status: Active Protocol: Document 03/02/18 09:04 [facility] (Rec: 03/02/18 09:48 [facility] [id number]) OP-PT Subjective Patient Comments Patient Comments Took yesterday off from PT, feels better, ready to get back at it. PT-OP-D Balance Start: 01/02/18 14:32 Freq: Status: Active Protocol: Document 02/09/18 11:15 [facility] (Rec: 02/09/18 13:41 [facility] [id number]) Balance Tests Single Limb Standing Single Limb- Right 3 sec Single Limb- Left 10 sec PT-OP-G Mobility & Gait Start: 01/02/18 14:32 Freq: Status: Active Protocol: Document 01/02/18 14:32 [facility] (Rec: 01/02/18 17:11 [facility] [id number]) OP Gait Assessment Gait Gait Assistance Required: Independent Assistive Devices Assistive Device Standard Walker Gait Deviations General Gait Pattern Antalgic Factors Limiting Gait Function Factors Limiting Gait Function Pain PT-OP-K Range of Motion Start: 01/02/18 14:32 Freq: Status: Active Protocol: Document 02/09/18 11:15 [facility] (Rec: 02/09/18 13:41 [facility] [id number]) Knee Goniometric Range of Motion Knee Measured in Degrees Right Extension Active (degrees) 3 Extension Passive (degrees) 1 Knee ROM Limitations Comments R knee to 0 degrees with PROM after manual therapy PT-OP-M Strength Start: 01/02/18 14:32 Freq: Status: Active Protocol: Document 01/02/18 14:32 [facility] (Rec: 01/02/18 17:11 [facility] [id number]) Knee Strength Knee Manual Muscle Testing Right Comments extensor lag requiring mod assist with SAQ and SLR PT-OP-Q Treatments Start: 01/02/18 14:32 Freq: Status: Active Protocol: Document 03/02/18 09:04 [facility] (Rec: 03/02/18 09:48 [facility] [id number]) Cardio Equipment Recumbent Stepper (Sci-Fit) Duration (Minutes) 10 Resistance 3 Treadmill Duration (Minutes) 2 Speed 1.2 Other 2.5 min Gym Equipment Shuttle Recovery Unilateral Squats Resistance 50# Shuttle Recovery Platform Unstable Reps/Time 15x2 Bilateral Squats Resistance 100# Shuttle Recovery Platform Unstable Reps/Time 15x2 Shuttle Balance 1 Details RED- DL and semi-tandem A/P Comments also weight shifts front/back, side/side Therapeutic Exercises Supine Exercises 10 Supine Exercise Name knee flex Equipment Used 65 cm ball 9 Supine Exercise Name LTR Equipment Used 65 cm ball 8 Supine Exercise Name heel dig Equipment Used 65 cm ball Sitting Exercises 3 Sitting Exercise Name hamstring ; wilbur and unil Resistance 50#, 30# Reps/Minutes 15 x 2 Standing Exercises 2 Standing Exercise Name BRIANNA gastroc/soleus stretch Side bilateral Manual Therapy Treatment Soft Tissue Mobilization 3 Body Location scar massage Intensity/Depth Moderate PT-OP-R Modalities Start: 01/02/18 14:32 Freq: Status: Active Protocol: Document 03/02/18 09:04 [facility] (Rec: 03/02/18 14:28 [facility] [id number]) Electric Stimulation Electric Stimulation Interferential Current (IFC) Body Location right knee Duration (Minutes) 15 Patient Position Supine Combined With Heat/Cold Cold Pack PT-OP-T Assessment and Plan Start: 01/02/18 14:32 Freq: Status: Active Protocol: Document 03/02/18 09:04 [facility] (Rec: 03/02/18 14:28 [facility] [id number]) Physical Therapy Assessment Goals Three Impairment strength Tractor Drill Operator Goal (LTG) right knee strength at least 4 +/5 LTG Duration 8 wks Two Impairment antalgic gait, requires use of walker Shelter Goal (LTG) Patient able to ambulate on level surfaces and stairs ( alternating pattern) without assistive device without significant limp LTG Duration 8 wks One Impairment ROM Shelter Goal (LTG) Improve right knee AROM to 0- 120 LTG Duration 8 wks Progress Towards Goals Progress Comments Improved exercise tolerance, able to tolerate 2.5 min on treadmill. Strength improving . Good compliance to HEP. Physical Therapy Plan Frequency and Duration Frequency of Treatment 2x/Week Duration of Treatment 8 wks Plan of Care Start Date 01/02/18 Plan of Care End Date 03/05/18 Therapeutic Interventions Therapeutic Interventions Gait Training Home Exercise Program Manual Therapy Neuromuscular Re-education Patient/Caregiver Education Self-Care/Home Management Soft Tissue Mobilization Taping Therapeutic Activities Therapeutic Exercises Modalities Cold Pack/Ice Massage Electric Stimulation Other Therapeutic Interventions Possible aquatic therapy when incision healed and approved by physician Next Visit Focus/Plan Next Note Type Treatment Note Next Visit Plan Add lunge walk if tolerated.
--- NOTE | 2018-03-05 16:42 | PT.OTN ---
Current Diagnoses Presence of right artificial knee joint (03/05/18) Physical Therapy Treatment Note PT-OP-A Visit Information Start: 01/02/18 14:32 Freq: Status: Active Protocol: Document 03/05/18 14:25 [facility] (Rec: 03/05/18 15:24 [facility] [id number]) Out-Patient Physical Therapy Visit Information Visit Information Visit Type Treatment Note Visit Start Time 14:30 Visit Stop Time 15:30 Total Visit Minutes 60 Visit Number 14 Number of INSTRUMENT TECHNICIAN HELPER Visits 0 PT-OP-B Current Condition Start: 01/02/18 14:32 Freq: Status: Active Protocol: Document 01/02/18 14:32 [facility] (Rec: 01/02/18 15:20 [facility] [id number]) Current Condition History of Current Condition Onset Date 01/07/18. Current Complaints Right uni-compartmental knee arthroplasty. History of Current Condition Uni-compartmental knee arthroplsty 12/28/17. Reports compliant to HEP, dressing has loosened on one side but he has been taping it closed for shower. Drainage has increased but no leaking. States he got a cold after surgery, better today; started as a chest cold, fever of 99 for 1 day. Has not called surgeon regarding either dressing or cold. Unable to lift LE by himself. Enough pain that he has difficulty sleeping, plus the cold. Prior to surgery ambulated with cane. Future Testing and Treatments Planned Plan is for left knee surgery after recovered from right. Treatment Goals Patient/Caregiver Goals Improve ROM, strength, gait. Prep for left TKA. Prior Functional Status Baseline Function- ADL's Independent Baseline Function- Mobility Independent Baseline Function- Gait Independent, limited distance, used cane due to bilateral knee pn Baseline Function- Recreation/Hobbies photography Baseline Function- Other stairs alternating pattern Current Functional Impairments (Reported) Functional Limitations- Mobility/Gait using walker Functional Limitations- Other step-to on stairs PT-OP-C Subjective Start: 01/02/18 14:32 Freq: Status: Active Protocol: Document 03/05/18 14:25 [facility] (Rec: 03/05/18 15:24 [facility] [id number]) OP-PT Subjective Patient Comments Patient Comments Took Ibuprofen again, less pain. Compliant to HEP, bought therapy ball. Patient Reported Progress Improving PT-OP-D Balance Start: 01/02/18 14:32 Freq: Status: Active Protocol: Document 02/09/18 11:15 [facility] (Rec: 02/09/18 13:41 [facility] [id number]) Balance Tests Single Limb Standing Single Limb- Right 3 sec Single Limb- Left 10 sec PT-OP-G Mobility & Gait Start: 01/02/18 14:32 Freq: Status: Active Protocol: Document 01/02/18 14:32 [facility] (Rec: 01/02/18 17:11 [facility] [id number]) OP Gait Assessment Gait Gait Assistance Required: Independent Assistive Devices Assistive Device Standard Walker Gait Deviations General Gait Pattern Antalgic Factors Limiting Gait Function Factors Limiting Gait Function Pain PT-OP-K Range of Motion Start: 01/02/18 14:32 Freq: Status: Active Protocol: Document 02/09/18 11:15 [facility] (Rec: 02/09/18 13:41 [facility] [id number]) Knee Goniometric Range of Motion Knee Measured in Degrees Right Extension Active (degrees) 3 Extension Passive (degrees) 1 Knee ROM Limitations Comments R knee to 0 degrees with PROM after manual therapy PT-OP-M Strength Start: 01/02/18 14:32 Freq: Status: Active Protocol: Document 01/02/18 14:32 [facility] (Rec: 01/02/18 17:11 [facility] [id number]) Knee Strength Knee Manual Muscle Testing Right Comments extensor lag requiring mod assist with SAQ and SLR PT-OP-Q Treatments Start: 01/02/18 14:32 Freq: Status: Active Protocol: Document 03/05/18 14:25 [facility] (Rec: 03/05/18 15:24 [facility] [id number]) Cardio Equipment Recumbent Stepper (Sci-Fit) Duration (Minutes) 10 Resistance 3 Treadmill Duration (Minutes) 2 Speed 1.5 Other 2.5 min Gym Equipment Shuttle Recovery Unilateral Squats Resistance 50# Shuttle Recovery Platform Unstable Reps/Time 15x2 Bilateral Squats Resistance 100# Shuttle Recovery Platform Unstable Reps/Time 15x2 Therapeutic Exercises Supine Exercises 10 Supine Exercise Name knee flex Equipment Used 65 cm ball 9 Supine Exercise Name LTR Equipment Used 65 cm ball 8 Supine Exercise Name heel dig Equipment Used 65 cm ball 7 Supine Exercise Name hamstring stretch Equipment Used supine on leg press 6 Supine Exercise Name bridge Reps/Minutes 10 5 Supine Exercise Name Pelvic tilt, glut set 4 Supine Exercise Name Jason stretch Side bilateral Comments Did not report feeling significant stretch 3 Supine Exercise Name SAQ Side bilateral Resistance 2# Comments comparing sides 2 Supine Exercise Name knee flex with foot on therapy ball Side right 1 Supine Exercise Name ankle pumps, quad sets, SAQ, SLR Side right Sidelying Exercises 1 Sidelying Exercise Name Hip ABD Reps/Minutes 10 Sitting Exercises 3 Sitting Exercise Name hamstring ; wilbur and unil Resistance 50#, 30# Reps/Minutes 15 x 2 2 Sitting Exercise Name LAQ Reps/Minutes 20 1 Sitting Exercise Name seated knee flex with scoot fwd Reps/Minutes 4 Standing Exercises 8 Standing Exercise Name lunge walk Comments start next session 7 Standing Exercise Name sidestepping Resistance L2TB 3 Standing Exercise Name HS stretch on stairs Side bilateral 2 Standing Exercise Name BRIANNA gastroc/soleus stretch Side bilateral Manual Therapy Treatment Soft Tissue Mobilization 3 Body Location scar massage Intensity/Depth Moderate Joint Mobilizations 1 Joint R PF Direction inferior and superior Grade III Body Position Supine PT-OP-R Modalities Start: 01/02/18 14:32 Freq: Status: Active Protocol: Document 03/05/18 14:25 [facility] (Rec: 03/05/18 15:24 [facility] [id number]) Electric Stimulation Electric Stimulation Interferential Current (IFC) Body Location right knee Duration (Minutes) 15 Patient Position Supine Combined With Heat/Cold Cold Pack PT-OP-T Assessment and Plan Start: 01/02/18 14:32 Freq: Status: Active Protocol: Document 03/05/18 14:25 [facility] (Rec: 03/05/18 15:24 [facility] [id number]) Physical Therapy Assessment Goals Three Impairment strength Intermediate Goal (LTG) right knee strength at least 4 +/5 LTG Duration 8 wks Two Impairment antalgic gait, requires use of walker Intermediate Goal (LTG) Patient able to ambulate on level surfaces and stairs ( alternating pattern) without assistive device without significant limp LTG Duration 8 wks One Impairment ROM Intermediate Goal (LTG) Improve right knee AROM to 0- 120 LTG Duration 8 wks Physical Therapy Plan Frequency and Duration Frequency of Treatment 2x/Week Duration of Treatment 8 wks Plan of Care Start Date 01/02/18 Plan of Care End Date 03/05/18 Therapeutic Interventions Therapeutic Interventions Gait Training Home Exercise Program Manual Therapy Neuromuscular Re-education Patient/Caregiver Education Self-Care/Home Management Soft Tissue Mobilization Taping Therapeutic Activities Therapeutic Exercises Modalities Cold Pack/Ice Massage Electric Stimulation Other Therapeutic Interventions Possible aquatic therapy when incision healed and approved by physician Next Visit Focus/Plan Next Note Type Treatment Note Next Visit Plan forward and backward moster walks next session
--- NOTE | 2018-03-09 17:19 | PT.OTN ---
Current Diagnoses Presence of right artificial knee joint (03/09/18) Physical Therapy Treatment Note PT-OP-A Visit Information Start: 01/02/18 14:32 Freq: Status: Active Protocol: Document 03/09/18 09:07 [facility] (Rec: 03/09/18 09:52 [facility] [id number]) Out-Patient Physical Therapy Visit Information Visit Information Visit Type Treatment Note Visit Start Time 08:15 Visit Stop Time 09:15 Total Visit Minutes 60 Visit Number 15 Number of ROOM SERVICE ASSOCIATE Visits 0 PT-OP-B Current Condition Start: 01/02/18 14:32 Freq: Status: Active Protocol: Document 01/02/18 14:32 [facility] (Rec: 01/02/18 15:20 [facility] [id number]) Current Condition History of Current Condition Onset Date 01/07/18. Current Complaints Right uni-compartmental knee arthroplasty. History of Current Condition Uni-compartmental knee arthroplsty 12/28/17. Reports compliant to HEP, dressing has loosened on one side but he has been taping it closed for shower. Drainage has increased but no leaking. States he got a cold after surgery, better today; started as a chest cold, fever of 99 for 1 day. Has not called surgeon regarding either dressing or cold. Unable to lift LE by himself. Enough pain that he has difficulty sleeping, plus the cold. Prior to surgery ambulated with cane. Future Testing and Treatments Planned Plan is for left knee surgery after recovered from right. Treatment Goals Patient/Caregiver Goals Improve ROM, strength, gait. Prep for left TKA. Prior Functional Status Baseline Function- ADL's Independent Baseline Function- Mobility Independent Baseline Function- Gait Independent, limited distance, used cane due to bilateral knee pn Baseline Function- Recreation/Hobbies photography Baseline Function- Other stairs alternating pattern Current Functional Impairments (Reported) Functional Limitations- Mobility/Gait using walker Functional Limitations- Other step-to on stairs PT-OP-C Subjective Start: 01/02/18 14:32 Freq: Status: Active Protocol: Document 03/09/18 09:07 [facility] (Rec: 03/09/18 09:52 [facility] [id number]) OP-PT Subjective Patient Comments Patient Comments Very sore from packing books, getting stronger from going up and down stairs multiple times per day. Taking 2 Ibuprofen 2x/day. PT-OP-D Balance Start: 01/02/18 14:32 Freq: Status: Active Protocol: Document 02/09/18 11:15 [facility] (Rec: 02/09/18 13:41 [facility] [id number]) Balance Tests Single Limb Standing Single Limb- Right 3 sec Single Limb- Left 10 sec PT-OP-G Mobility & Gait Start: 01/02/18 14:32 Freq: Status: Active Protocol: Document 01/02/18 14:32 [facility] (Rec: 01/02/18 17:11 [facility] [id number]) OP Gait Assessment Gait Gait Assistance Required: Independent Assistive Devices Assistive Device Standard Walker Gait Deviations General Gait Pattern Antalgic Factors Limiting Gait Function Factors Limiting Gait Function Pain PT-OP-K Range of Motion Start: 01/02/18 14:32 Freq: Status: Active Protocol: Document 02/09/18 11:15 [facility] (Rec: 02/09/18 13:41 [facility] [id number]) Knee Goniometric Range of Motion Knee Measured in Degrees Right Extension Active (degrees) 3 Extension Passive (degrees) 1 Knee ROM Limitations Comments R knee to 0 degrees with PROM after manual therapy PT-OP-M Strength Start: 01/02/18 14:32 Freq: Status: Active Protocol: Document 01/02/18 14:32 [facility] (Rec: 01/02/18 17:11 [facility] [id number]) Knee Strength Knee Manual Muscle Testing Right Comments extensor lag requiring mod assist with SAQ and SLR PT-OP-Q Treatments Start: 01/02/18 14:32 Freq: Status: Active Protocol: Document 03/09/18 09:07 [facility] (Rec: 03/09/18 09:52 [facility] [id number]) Cardio Equipment Recumbent Stepper (Sci-Fit) Duration (Minutes) 9 Resistance 3 Recumbent Bicycle Duration (Minutes) 5 Resistance 15 Seat Position 6 Treadmill Other unable;broken Gym Equipment Shuttle Recovery Unilateral Squats Resistance 50# Shuttle Recovery Platform Unstable Reps/Time 15x2 Bilateral Squats Resistance 100# Shuttle Recovery Platform Unstable Reps/Time 15x2 Shuttle Balance 1 Details RED- DL and semi-tandem A/P Comments also weight shifts front/back, side/side Sport Cord 1 Exercise Details fwd/side Cord/Resistance green Reps/Duration 3x ea Comments limited by back pain Therapeutic Exercises Sitting Exercises 3 Sitting Exercise Name hamstring ; wilbur and unil Resistance 50#, 30# Reps/Minutes 15 x 2 Standing Exercises 3 Standing Exercise Name HS stretch on stairs Side bilateral 2 Standing Exercise Name BRIANNA gastroc/soleus stretch Manual Therapy Treatment Soft Tissue Mobilization 3 Body Location scar massage Intensity/Depth Moderate 1 Body Location HS Mobilization Type Rolling Intensity/Depth Moderate Self-Care/Home Management Treatment Education Patient Education Body Mechanics Joint Protection Posture Other Education for packing books and lifting boxes PT-OP-R Modalities Start: 01/02/18 14:32 Freq: Status: Active Protocol: Document 03/09/18 17:18 [facility] (Rec: 03/09/18 17:19 [facility] [id number]) Electric Stimulation Electric Stimulation Interferential Current (IFC) Body Location right knee Duration (Minutes) 15 Patient Position Supine Combined With Heat/Cold Cold Pack PT-OP-T Assessment and Plan Start: 01/02/18 14:32 Freq: Status: Active Protocol: Document 03/09/18 17:18 [facility] (Rec: 03/09/18 17:19 [facility] [id number]) Physical Therapy Assessment Goals Three Impairment strength Mcfp Goal (LTG) right knee strength at least 4 +/5 LTG Duration 8 wks Two Impairment antalgic gait, requires use of walker Mcfp Goal (LTG) Patient able to ambulate on level surfaces and stairs ( alternating pattern) without assistive device without significant limp LTG Duration 8 wks One Impairment ROM Mcfp Goal (LTG) Improve right knee AROM to 0- 120 LTG Duration 8 wks Physical Therapy Plan Frequency and Duration Frequency of Treatment 2x/Week Duration of Treatment 8 wks Plan of Care Start Date 01/02/18 Plan of Care End Date 03/05/18 Therapeutic Interventions Therapeutic Interventions Gait Training Home Exercise Program Manual Therapy Neuromuscular Re-education Patient/Caregiver Education Self-Care/Home Management Soft Tissue Mobilization Taping Therapeutic Activities Therapeutic Exercises Modalities Cold Pack/Ice Massage Electric Stimulation Other Therapeutic Interventions Possible aquatic therapy when incision healed and approved by physician Next Visit Focus/Plan Next Note Type Treatment Note Next Visit Plan Lunge walk, progress standing functional exercises as tolerated with emphasis on postural alignment and joint protection.
--- NOTE | 2018-03-12 16:18 | PT.OTN ---
Current Diagnoses Presence of right artificial knee joint (03/12/18) Physical Therapy Treatment Note PT-OP-A Visit Information Start: 01/02/18 14:32 Freq: Status: Active Protocol: Document 03/12/18 14:27 [facility] (Rec: 03/12/18 15:17 [facility] [id number]) Out-Patient Physical Therapy Visit Information Visit Information Visit Type Treatment Note Visit Start Time 14:30 Visit Stop Time 15:30 Total Visit Minutes 60 Visit Number 16 Number of CHAIN OFFBEARER Visits 0 PT-OP-B Current Condition Start: 01/02/18 14:32 Freq: Status: Active Protocol: Document 01/02/18 14:32 [facility] (Rec: 01/02/18 15:20 [facility] [id number]) Current Condition History of Current Condition Onset Date 01/07/18. Current Complaints Right uni-compartmental knee arthroplasty. History of Current Condition Uni-compartmental knee arthroplsty 12/28/17. Reports compliant to HEP, dressing has loosened on one side but he has been taping it closed for shower. Drainage has increased but no leaking. States he got a cold after surgery, better today; started as a chest cold, fever of 99 for 1 day. Has not called surgeon regarding either dressing or cold. Unable to lift LE by himself. Enough pain that he has difficulty sleeping, plus the cold. Prior to surgery ambulated with cane. Future Testing and Treatments Planned Plan is for left knee surgery after recovered from right. Treatment Goals Patient/Caregiver Goals Improve ROM, strength, gait. Prep for left TKA. Prior Functional Status Baseline Function- ADL's Independent Baseline Function- Mobility Independent Baseline Function- Gait Independent, limited distance, used cane due to bilateral knee pn Baseline Function- Recreation/Hobbies photography Baseline Function- Other stairs alternating pattern Current Functional Impairments (Reported) Functional Limitations- Mobility/Gait using walker Functional Limitations- Other step-to on stairs PT-OP-C Subjective Start: 01/02/18 14:32 Freq: Status: Active Protocol: Document 03/12/18 14:27 [facility] (Rec: 03/12/18 15:17 [facility] [id number]) OP-PT Subjective Patient Comments Patient Comments Decreased soreness noticed yesterday. Progressing well. Just over 3 weeks before he moves. PT-OP-D Balance Start: 01/02/18 14:32 Freq: Status: Active Protocol: Document 02/09/18 11:15 [facility] (Rec: 02/09/18 13:41 [facility] [id number]) Balance Tests Single Limb Standing Single Limb- Right 3 sec Single Limb- Left 10 sec PT-OP-G Mobility & Gait Start: 01/02/18 14:32 Freq: Status: Active Protocol: Document 01/02/18 14:32 [facility] (Rec: 01/02/18 17:11 [facility] [id number]) OP Gait Assessment Gait Gait Assistance Required: Independent Assistive Devices Assistive Device Standard Walker Gait Deviations General Gait Pattern Antalgic Factors Limiting Gait Function Factors Limiting Gait Function Pain PT-OP-K Range of Motion Start: 01/02/18 14:32 Freq: Status: Active Protocol: Document 02/09/18 11:15 [facility] (Rec: 02/09/18 13:41 [facility] [id number]) Knee Goniometric Range of Motion Knee Measured in Degrees Right Extension Active (degrees) 3 Extension Passive (degrees) 1 Knee ROM Limitations Comments R knee to 0 degrees with PROM after manual therapy PT-OP-M Strength Start: 01/02/18 14:32 Freq: Status: Active Protocol: Document 01/02/18 14:32 [facility] (Rec: 01/02/18 17:11 [facility] [id number]) Knee Strength Knee Manual Muscle Testing Right Comments extensor lag requiring mod assist with SAQ and SLR PT-OP-Q Treatments Start: 01/02/18 14:32 Freq: Status: Active Protocol: Document 03/12/18 14:27 [facility] (Rec: 03/12/18 15:17 [facility] [id number]) Cardio Equipment Recumbent Bicycle Duration (Minutes) 5 Resistance 15 Seat Position 6 Gym Equipment Shuttle Recovery Unilateral Squats Resistance 50# Shuttle Recovery Platform Unstable Reps/Time 15x2 Bilateral Squats Resistance 100# Shuttle Recovery Platform Unstable Reps/Time 15x2 Shuttle Balance 1 Details RED- DL and semi-tandem A/P Comments also weight shifts front/back, side/side Sport Cord 1 Exercise Details backward Cord/Resistance green Reps/Duration 4x Comments limited by back pain Therapeutic Exercises Supine Exercises 7 Supine Exercise Name hamstring stretch Equipment Used supine on leg press Comments used strap Sitting Exercises 4 Sitting Exercise Name hamstring stretch with strap Reps/Minutes 2x 3 Sitting Exercise Name hamstring ; wilbur and unil Resistance 60#, 30# Reps/Minutes 15 x 2 2 Sitting Exercise Name LAQ Reps/Minutes 20 Standing Exercises 8 Standing Exercise Name lunge walk Comments start next session 2 Standing Exercise Name BRIANNA gastroc/soleus stretch Manual Therapy Treatment Soft Tissue Mobilization 3 Body Location scar massage Intensity/Depth Moderate PT-OP-R Modalities Start: 01/02/18 14:32 Freq: Status: Active Protocol: Document 03/12/18 14:27 [facility] (Rec: 03/12/18 16:18 [facility] [id number]) Electric Stimulation Electric Stimulation Interferential Current (IFC) Body Location right knee Duration (Minutes) 15 Patient Position Supine Combined With Heat/Cold Cold Pack PT-OP-T Assessment and Plan Start: 01/02/18 14:32 Freq: Status: Active Protocol: Document 03/12/18 14:27 [facility] (Rec: 03/12/18 16:18 [facility] [id number]) Physical Therapy Assessment Goals Three Impairment strength Land Leasing Information Clerk Goal (LTG) right knee strength at least 4 +/5 LTG Duration 8 wks Two Impairment antalgic gait, requires use of walker Alf Goal (LTG) Patient able to ambulate on level surfaces and stairs ( alternating pattern) without assistive device without significant limp LTG Duration 8 wks One Impairment ROM Alf Goal (LTG) Improve right knee AROM to 0- 120 LTG Duration 8 wks Progress Towards Goals Progress Comments Continues to make good progress with TKA rehab, increasing exercise tolerance, however limited by back pain requiring frequent rest breaks . Requires cues for postural alignment and core stabilization with all ther ex . Physical Therapy Plan Frequency and Duration Frequency of Treatment 2x/Week Duration of Treatment 8 wks Plan of Care Start Date 01/02/18 Plan of Care End Date 03/05/18 Therapeutic Interventions Therapeutic Interventions Gait Training Home Exercise Program Manual Therapy Neuromuscular Re-education Patient/Caregiver Education Self-Care/Home Management Soft Tissue Mobilization Taping Therapeutic Activities Therapeutic Exercises Next Visit Focus/Plan Next Note Type Treatment Note Next Visit Plan Lunge walk, progress standing functional exercises as tolerated with emphasis on postural alignment and joint protection.
--- NOTE | 2018-03-16 08:56 | PT.OTRE ---
Current Diagnoses Presence of right artificial knee joint (03/16/18) Past Medical History (Last Updated 12/15/17 @ 16:26 by Sierra Mcginnis RN) Arthritis of both knees (Acute) Cataract (Acute) Diverticulitis (Acute) Genital HSV (Acute) History of diverticulitis (Acute) Hypertension (Acute) Knee pain, bilateral (Acute) Melanoma (Acute ~2006) Psoriasis (Acute) Sleep apnea (Acute) Provider Visit Care Team Role Provider Type Sancho Gamez MD Family Provider Physician Primary Care Provider Specialty: Family Practice Address: [address] [place] [address], [id number] Email: [email or web address] Mike Salazar MD Attending Provider Physician Specialty: Orthopedics Address: [address] [place] [address], [id number] Email: [email or web address] Physical Therapy Re-Evaluation PT-OP-A Visit Information Start: 01/02/18 14:32 Freq: Status: Active Protocol: Document 03/12/18 14:27 [facility] (Rec: 03/12/18 15:17 [facility] [id number]) Out-Patient Physical Therapy Visit Information Visit Information Visit Type Treatment Note Visit Start Time 14:30 Visit Stop Time 15:30 Total Visit Minutes 60 Visit Number 16 Number of THERMODYNAMICS TEACHER Visits 0 PT-OP-B Current Condition Start: 01/02/18 14:32 Freq: Status: Active Protocol: Document 01/02/18 14:32 [facility] (Rec: 01/02/18 15:20 [facility] [id number]) Current Condition History of Current Condition Onset Date 01/07/18. Current Complaints Right uni-compartmental knee arthroplasty. History of Current Condition Uni-compartmental knee arthroplsty 12/28/17. Reports compliant to HEP, dressing has loosened on one side but he has been taping it closed for shower. Drainage has increased but no leaking. States he got a cold after surgery, better today; started as a chest cold, fever of 99 for 1 day. Has not called surgeon regarding either dressing or cold. Unable to lift LE by himself. Enough pain that he has difficulty sleeping, plus the cold. Prior to surgery ambulated with cane. Future Testing and Treatments Planned Plan is for left knee surgery after recovered from right. Treatment Goals Patient/Caregiver Goals Improve ROM, strength, gait. Prep for left TKA. Prior Functional Status Baseline Function- ADL's Independent Baseline Function- Mobility Independent Baseline Function- Gait Independent, limited distance, used cane due to bilateral knee pn Baseline Function- Recreation/Hobbies photography Baseline Function- Other stairs alternating pattern Current Functional Impairments (Reported) Functional Limitations- Mobility/Gait using walker Functional Limitations- Other step-to on stairs PT-OP-C Subjective Start: 01/02/18 14:32 Freq: Status: Active Protocol: Document 03/12/18 14:27 [facility] (Rec: 03/12/18 15:17 [facility] [id number]) OP-PT Subjective Patient Comments Patient Comments Decreased soreness noticed yesterday. Progressing well. Just over 3 weeks before he moves. PT-OP-D Balance Start: 01/02/18 14:32 Freq: Status: Active Protocol: Document 02/09/18 11:15 [facility] (Rec: 02/09/18 13:41 [facility] [id number]) Balance Tests Single Limb Standing Single Limb- Right 3 sec Single Limb- Left 10 sec PT-OP-G Mobility & Gait Start: 01/02/18 14:32 Freq: Status: Active Protocol: Document 01/02/18 14:32 [facility] (Rec: 01/02/18 17:11 [facility] [id number]) OP Gait Assessment Gait Gait Assistance Required: Independent Assistive Devices Assistive Device Standard Walker Gait Deviations General Gait Pattern Antalgic Factors Limiting Gait Function Factors Limiting Gait Function Pain PT-OP-K Range of Motion Start: 01/02/18 14:32 Freq: Status: Active Protocol: Document 02/09/18 11:15 [facility] (Rec: 02/09/18 13:41 [facility] [id number]) Knee Goniometric Range of Motion Knee Measured in Degrees Right Extension Active (degrees) 3 Extension Passive (degrees) 1 Knee ROM Limitations Comments R knee to 0 degrees with PROM after manual therapy PT-OP-M Strength Start: 01/02/18 14:32 Freq: Status: Active Protocol: Document 01/02/18 14:32 [facility] (Rec: 01/02/18 17:11 [facility] [id number]) Knee Strength Knee Manual Muscle Testing Right Comments extensor lag requiring mod assist with SAQ and SLR PT-OP-Q Treatments Start: 01/02/18 14:32 Freq: Status: Active Protocol: Document 03/12/18 14:27 [facility] (Rec: 03/12/18 15:17 [facility] [id number]) Cardio Equipment Recumbent Bicycle Duration (Minutes) 5 Resistance 15 Seat Position 6 Gym Equipment Shuttle Recovery Unilateral Squats Resistance 50# Shuttle Recovery Platform Unstable Reps/Time 15x2 Bilateral Squats Resistance 100# Shuttle Recovery Platform Unstable Reps/Time 15x2 Shuttle Balance 1 Details RED- DL and semi-tandem A/P Comments also weight shifts front/back, side/side Sport Cord 1 Exercise Details backward Cord/Resistance green Reps/Duration 4x Comments limited by back pain Therapeutic Exercises Supine Exercises 7 Supine Exercise Name hamstring stretch Equipment Used supine on leg press Comments used strap Sitting Exercises 4 Sitting Exercise Name hamstring stretch with strap Reps/Minutes 2x 3 Sitting Exercise Name hamstring ; wilbur and unil Resistance 60#, 30# Reps/Minutes 15 x 2 2 Sitting Exercise Name LAQ Reps/Minutes 20 Standing Exercises 8 Standing Exercise Name lunge walk Comments start next session 2 Standing Exercise Name BRIANNA gastroc/soleus stretch Manual Therapy Treatment Soft Tissue Mobilization 3 Body Location scar massage Intensity/Depth Moderate PT-OP-R Modalities Start: 01/02/18 14:32 Freq: Status: Active Protocol: Document 03/12/18 14:27 [facility] (Rec: 03/12/18 16:18 [facility] [id number]) Electric Stimulation Electric Stimulation Interferential Current (IFC) Body Location right knee Duration (Minutes) 15 Patient Position Supine Combined With Heat/Cold Cold Pack PT-OP-T Assessment and Plan Start: 01/02/18 14:32 Freq: Status: Active Protocol: Document 03/12/18 14:27 [facility] (Rec: 03/12/18 16:18 [facility] [id number]) Physical Therapy Assessment Goals Three Impairment strength Mcc Goal (LTG) right knee strength at least 4 +/5 ( good goal progress) LTG Duration 4 wks Two Impairment antalgic gait, requires use of walker Creative Writing English Professor Goal (LTG) Patient able to ambulate on level surfaces and stairs ( alternating pattern) without assistive device without significant limp (good goal progress) LTG Duration 4 wks One Impairment ROM Creative Writing English Professor Goal (LTG) Improve right knee AROM to 0- 120 (good goal progress) LTG Duration 4 wks Progress Towards Goals Progress Comments Continues to make good progress with TKA rehab, increasing exercise tolerance, however limited by back pain requiring frequent rest breaks . Requires cues for postural alignment and core stabilization with all ther ex . Physical Therapy Plan Frequency and Duration Frequency of Treatment 2x/Week Duration of Treatment 8 wks Plan of Care Start Date 03/05/18 Plan of Care End Date 03/26/18 Therapeutic Interventions Therapeutic Interventions Gait Training Home Exercise Program Manual Therapy Neuromuscular Re-education Patient/Caregiver Education Self-Care/Home Management Soft Tissue Mobilization Taping Therapeutic Activities Therapeutic Exercises Next Visit Focus/Plan Next Note Type Treatment Note Next Visit Plan Lunge walk, progress standing functional exercises as tolerated with emphasis on postural alignment and joint protection.
--- NOTE | 2018-03-16 08:57 | PT.OPPOC ---
Current Diagnoses Presence of right artificial knee joint (03/16/18) Provider Visit Care Team Role Provider Type Sancho Gamez MD Family Provider Physician Primary Care Provider Specialty: Family Practice Address: [address] [place] [address], [address] Email: [email or web address] Mike Salazar MD Attending Provider Physician Specialty: Orthopedics Address: [address] [place] [address], [phone] Email: [email or web address] Plan Of Care PT-OP-T Assessment and Plan Start: 01/02/18 14:32 Freq: Status: Active Protocol: Document 03/12/18 14:27 [facility] (Rec: 03/12/18 16:18 [facility] [id number]) Physical Therapy Assessment Goals Three Impairment strength Mcc Goal (LTG) right knee strength at least 4 +/5 ( good goal progress) LTG Duration 4 wks Two Impairment antalgic gait, requires use of walker Mcc Goal (LTG) Patient able to ambulate on level surfaces and stairs ( alternating pattern) without assistive device without significant limp (good goal progress) LTG Duration 4 wks One Impairment ROM Mcc Goal (LTG) Improve right knee AROM to 0- 120 (good goal progress) LTG Duration 4 wks Progress Towards Goals Progress Comments Continues to make good progress with TKA rehab, increasing exercise tolerance, however limited by back pain requiring frequent rest breaks . Requires cues for postural alignment and core stabilization with all ther ex . Physical Therapy Plan Frequency and Duration Frequency of Treatment 2x/Week Duration of Treatment 8 wks Plan of Care Start Date 03/05/18 Plan of Care End Date 03/26/18 Therapeutic Interventions Therapeutic Interventions Gait Training Home Exercise Program Manual Therapy Neuromuscular Re-education Patient/Caregiver Education Self-Care/Home Management Soft Tissue Mobilization Taping Therapeutic Activities Therapeutic Exercises Next Visit Focus/Plan Next Note Type Treatment Note Next Visit Plan Lunge walk, progress standing functional exercises as tolerated with emphasis on postural alignment and joint protection. Plan of Care Dates Plan of Care Start Date 03/05/18 Plan of Care End Date 03/26/18 Please Sign and Return: I have reviewed this Plan of Care and certify that the skilled therapy services above are required to meet the patient?s needs. Physician Signature Date Printed Name and Credentials Clinical Instructor Signature Printed Name and Credentials
--- NOTE | 2018-03-16 17:11 | PT.OTN ---
Current Diagnoses Presence of right artificial knee joint (03/16/18) Physical Therapy Treatment Note PT-OP-A Visit Information Start: 01/02/18 14:32 Freq: Status: Active Protocol: Document 03/16/18 09:12 [facility] (Rec: 03/16/18 17:10 [facility] [id number]) Out-Patient Physical Therapy Visit Information Visit Information Visit Type Treatment Note Visit Start Time 09:00 Visit Stop Time 10:00 Total Visit Minutes 60 Visit Number 17 Number of SAWMILL RELIEF WORKER Visits 0 PT-OP-B Current Condition Start: 01/02/18 14:32 Freq: Status: Active Protocol: Document 01/02/18 14:32 [facility] (Rec: 01/02/18 15:20 [facility] [id number]) Current Condition History of Current Condition Onset Date 01/07/18. Current Complaints Right uni-compartmental knee arthroplasty. History of Current Condition Uni-compartmental knee arthroplsty 12/28/17. Reports compliant to HEP, dressing has loosened on one side but he has been taping it closed for shower. Drainage has increased but no leaking. States he got a cold after surgery, better today; started as a chest cold, fever of 99 for 1 day. Has not called surgeon regarding either dressing or cold. Unable to lift LE by himself. Enough pain that he has difficulty sleeping, plus the cold. Prior to surgery ambulated with cane. Future Testing and Treatments Planned Plan is for left knee surgery after recovered from right. Treatment Goals Patient/Caregiver Goals Improve ROM, strength, gait. Prep for left TKA. Prior Functional Status Baseline Function- ADL's Independent Baseline Function- Mobility Independent Baseline Function- Gait Independent, limited distance, used cane due to bilateral knee pn Baseline Function- Recreation/Hobbies photography Baseline Function- Other stairs alternating pattern Current Functional Impairments (Reported) Functional Limitations- Mobility/Gait using walker Functional Limitations- Other step-to on stairs PT-OP-C Subjective Start: 01/02/18 14:32 Freq: Status: Active Protocol: Document 03/16/18 09:12 [facility] (Rec: 03/16/18 17:10 [facility] [id number]) OP-PT Subjective Patient Comments Patient Comments Increased soreness after last session; primarily muscle soreness. Reports gets very stiff sitting at desk, makes gait on stairs difficult. Done packing books. PT-OP-D Balance Start: 01/02/18 14:32 Freq: Status: Active Protocol: Document 02/09/18 11:15 [facility] (Rec: 02/09/18 13:41 [facility] [id number]) Balance Tests Single Limb Standing Single Limb- Right 3 sec Single Limb- Left 10 sec PT-OP-G Mobility & Gait Start: 01/02/18 14:32 Freq: Status: Active Protocol: Document 01/02/18 14:32 [facility] (Rec: 01/02/18 17:11 [facility] [id number]) OP Gait Assessment Gait Gait Assistance Required: Independent Assistive Devices Assistive Device Standard Walker Gait Deviations General Gait Pattern Antalgic Factors Limiting Gait Function Factors Limiting Gait Function Pain PT-OP-K Range of Motion Start: 01/02/18 14:32 Freq: Status: Active Protocol: Document 02/09/18 11:15 [facility] (Rec: 02/09/18 13:41 [facility] [id number]) Knee Goniometric Range of Motion Knee Measured in Degrees Right Extension Active (degrees) 3 Extension Passive (degrees) 1 Knee ROM Limitations Comments R knee to 0 degrees with PROM after manual therapy PT-OP-M Strength Start: 01/02/18 14:32 Freq: Status: Active Protocol: Document 01/02/18 14:32 [facility] (Rec: 01/02/18 17:11 [facility] [id number]) Knee Strength Knee Manual Muscle Testing Right Comments extensor lag requiring mod assist with SAQ and SLR PT-OP-Q Treatments Start: 01/02/18 14:32 Freq: Status: Active Protocol: Document 03/16/18 09:12 [facility] (Rec: 03/16/18 09:53 [facility] [id number]) Cardio Equipment Recumbent Bicycle Duration (Minutes) 5 Resistance 15 Seat Position 6 Gym Equipment Shuttle Recovery Unilateral Squats Resistance 50# Shuttle Recovery Platform Unstable Reps/Time 15x2 Bilateral Squats Resistance 100# Shuttle Recovery Platform Unstable Reps/Time 15x2 Therapeutic Exercises Sitting Exercises 5 Sitting Exercise Name hip ad Reps/Minutes 60 3 Sitting Exercise Name hamstring ; wilbur and unil Resistance 60#, 40# Reps/Minutes 15 x 2 1 Sitting Exercise Name hip ab Reps/Minutes 40 Standing Exercises 3 Standing Exercise Name HS stretch on stairs Side bilateral 2 Standing Exercise Name BRIANNA gastroc/soleus stretch Comments also standard HC/hip flex lunge stretch Gait Training Gait Activity 2 Description stairs Level of Assistance cues Comments 20 4 stairs stairs Manual Therapy Treatment Soft Tissue Mobilization 3 Body Location scar massage Intensity/Depth Moderate 1 Body Location HS Mobilization Type Rolling Intensity/Depth Moderate PT-OP-R Modalities Start: 01/02/18 14:32 Freq: Status: Active Protocol: Document 03/16/18 09:12 [facility] (Rec: 03/16/18 09:53 [facility] [id number]) Electric Stimulation Electric Stimulation Interferential Current (IFC) Body Location right knee Duration (Minutes) 15 Patient Position Supine Combined With Heat/Cold Cold Pack PT-OP-T Assessment and Plan Start: 01/02/18 14:32 Freq: Status: Active Protocol: Document 03/16/18 09:12 [facility] (Rec: 03/16/18 17:10 [facility] [id number]) Physical Therapy Assessment Goals Three Impairment strength Senior Linux Systems Engineer Goal (LTG) right knee strength at least 4 +/5 ( good goal progress) LTG Duration 4 wks Two Impairment antalgic gait, requires use of walker Senior Linux Systems Engineer Goal (LTG) Patient able to ambulate on level surfaces and stairs ( alternating pattern) without assistive device without significant limp (good goal progress) LTG Duration 4 wks One Impairment ROM Skilled Nursing Goal (LTG) Improve right knee AROM to 0- 120 (good goal progress) LTG Duration 4 wks Progress Towards Goals Progress Comments No shuttle balance today due to feeling that activity caused his increased discomfort. Left knee pain worsening at times; plan is to have left knee done before too long. Physical Therapy Plan Frequency and Duration Frequency of Treatment 2x/Week Duration of Treatment 8 wks Plan of Care Start Date 03/05/18 Plan of Care End Date 03/26/18 Therapeutic Interventions Therapeutic Interventions Gait Training Home Exercise Program Manual Therapy Neuromuscular Re-education Patient/Caregiver Education Self-Care/Home Management Soft Tissue Mobilization Taping Therapeutic Activities Therapeutic Exercises Next Visit Focus/Plan Next Note Type Treatment Note Next Visit Plan Emphasis on HEP, transition toward discharge within 2 visits.
--- NOTE | 2018-03-19 15:07 | PT.OTN ---
Current Diagnoses Presence of right artificial knee joint (03/19/18) Physical Therapy Treatment Note PT-OP-A Visit Information Start: 01/02/18 14:32 Freq: Status: Active Protocol: Document 03/19/18 14:30 [facility] (Rec: 03/19/18 15:07 [facility] [id number]) Out-Patient Physical Therapy Visit Information Visit Information Visit Type Treatment Note Visit Start Time 14:30 Visit Stop Time 15:30 Total Visit Minutes 60 Visit Number 18 Number of CLASSROOM TEACHER Visits 0 PT-OP-B Current Condition Start: 01/02/18 14:32 Freq: Status: Active Protocol: Document 01/02/18 14:32 [facility] (Rec: 01/02/18 15:20 [facility] [id number]) Current Condition History of Current Condition Onset Date 01/07/18. Current Complaints Right uni-compartmental knee arthroplasty. History of Current Condition Uni-compartmental knee arthroplsty 12/28/17. Reports compliant to HEP, dressing has loosened on one side but he has been taping it closed for shower. Drainage has increased but no leaking. States he got a cold after surgery, better today; started as a chest cold, fever of 99 for 1 day. Has not called surgeon regarding either dressing or cold. Unable to lift LE by himself. Enough pain that he has difficulty sleeping, plus the cold. Prior to surgery ambulated with cane. Future Testing and Treatments Planned Plan is for left knee surgery after recovered from right. Treatment Goals Patient/Caregiver Goals Improve ROM, strength, gait. Prep for left TKA. Prior Functional Status Baseline Function- ADL's Independent Baseline Function- Mobility Independent Baseline Function- Gait Independent, limited distance, used cane due to bilateral knee pn Baseline Function- Recreation/Hobbies photography Baseline Function- Other stairs alternating pattern Current Functional Impairments (Reported) Functional Limitations- Mobility/Gait using walker Functional Limitations- Other step-to on stairs PT-OP-C Subjective Start: 01/02/18 14:32 Freq: Status: Active Protocol: Document 03/19/18 14:30 [facility] (Rec: 03/19/18 15:07 [facility] [id number]) OP-PT Subjective Patient Comments Patient Comments Feels he recovers more slowly than he used to, very sore after last PT session, took weekend off, feels good today. PT-OP-D Balance Start: 01/02/18 14:32 Freq: Status: Active Protocol: Document 02/09/18 11:15 [facility] (Rec: 02/09/18 13:41 [facility] [id number]) Balance Tests Single Limb Standing Single Limb- Right 3 sec Single Limb- Left 10 sec PT-OP-G Mobility & Gait Start: 01/02/18 14:32 Freq: Status: Active Protocol: Document 01/02/18 14:32 [facility] (Rec: 01/02/18 17:11 [facility] [id number]) OP Gait Assessment Gait Gait Assistance Required: Independent Assistive Devices Assistive Device Standard Walker Gait Deviations General Gait Pattern Antalgic Factors Limiting Gait Function Factors Limiting Gait Function Pain PT-OP-K Range of Motion Start: 01/02/18 14:32 Freq: Status: Active Protocol: Document 02/09/18 11:15 [facility] (Rec: 02/09/18 13:41 [facility] [id number]) Knee Goniometric Range of Motion Knee Measured in Degrees Right Extension Active (degrees) 3 Extension Passive (degrees) 1 Knee ROM Limitations Comments R knee to 0 degrees with PROM after manual therapy PT-OP-M Strength Start: 01/02/18 14:32 Freq: Status: Active Protocol: Document 01/02/18 14:32 [facility] (Rec: 01/02/18 17:11 [facility] [id number]) Knee Strength Knee Manual Muscle Testing Right Comments extensor lag requiring mod assist with SAQ and SLR PT-OP-Q Treatments Start: 01/02/18 14:32 Freq: Status: Active Protocol: Document 03/19/18 14:30 [facility] (Rec: 03/19/18 15:07 [facility] [id number]) Cardio Equipment Recumbent Bicycle Duration (Minutes) 5 Resistance 15 Seat Position 6 Gym Equipment Shuttle Recovery Unilateral Squats Resistance 50# Shuttle Recovery Platform Unstable Reps/Time 15x2 Bilateral Squats Resistance 100# Shuttle Recovery Platform Unstable Reps/Time 15x2 Therapeutic Exercises Sitting Exercises 5 Sitting Exercise Name hip ad Equipment Used 15 Reps/Minutes 60 4 Sitting Exercise Name hamstring stretch with strap Reps/Minutes 2x 3 Sitting Exercise Name hamstring ; wilbur and unil Resistance 60#, 40# Reps/Minutes 15 x 2 1 Sitting Exercise Name hip ab Equipment Used 15 Reps/Minutes 40 Standing Exercises 8 Standing Exercise Name lunge walk Comments start next session 3 Standing Exercise Name HS stretch on stairs Side bilateral 2 Standing Exercise Name BRIANNA gastroc/soleus stretch Comments also standard HC/hip flex lunge stretch Manual Therapy Treatment Soft Tissue Mobilization 3 Body Location scar massage Intensity/Depth Moderate 1 Body Location HS Mobilization Type Rolling Intensity/Depth Moderate PT-OP-R Modalities Start: 01/02/18 14:32 Freq: Status: Active Protocol: Document 03/19/18 14:30 [facility] (Rec: 03/19/18 15:07 [facility] [id number]) Electric Stimulation Electric Stimulation Interferential Current (IFC) Body Location right knee Duration (Minutes) 15 Patient Position Supine Combined With Heat/Cold Cold Pack PT-OP-T Assessment and Plan Start: 01/02/18 14:32 Freq: Status: Active Protocol: Document 03/19/18 14:30 [facility] (Rec: 03/19/18 15:07 [facility] [id number]) Physical Therapy Assessment Goals Three Impairment strength Electric Meter Technician Goal (LTG) right knee strength at least 4 +/5 ( good goal progress) LTG Duration 4 wks Two Impairment antalgic gait, requires use of walker Detention Goal (LTG) Patient able to ambulate on level surfaces and stairs ( alternating pattern) without assistive device without significant limp (good goal progress) LTG Duration 4 wks One Impairment ROM Electric Meter Technician Goal (LTG) Improve right knee AROM to 0- 120 (good goal progress) LTG Duration 4 wks Progress Towards Goals Progress Comments No shuttle balance today due to feeling that activity caused his increased discomfort. Left knee pain worsening at times; plan is to have left knee done before too long. Physical Therapy Plan Frequency and Duration Frequency of Treatment 2x/Week Duration of Treatment 8 wks Plan of Care Start Date 03/05/18 Plan of Care End Date 03/26/18 Therapeutic Interventions Therapeutic Interventions Gait Training Home Exercise Program Manual Therapy Neuromuscular Re-education Patient/Caregiver Education Self-Care/Home Management Soft Tissue Mobilization Taping Therapeutic Activities Therapeutic Exercises Next Visit Focus/Plan Next Note Type Treatment Note Next Visit Plan Anticipate discharge after last PT visit.
--- NOTE | 2018-03-21 14:36 | PT.OTN ---
Current Diagnoses Presence of right artificial knee joint (03/21/18) Physical Therapy Treatment Note PT-OP-A Visit Information Start: 01/02/18 14:32 Freq: Status: Active Protocol: Document 03/21/18 09:00 [facility] (Rec: 03/21/18 09:56 [facility] [id number]) Out-Patient Physical Therapy Visit Information Visit Information Visit Type Treatment Note Visit Start Time 09:01 Visit Stop Time 10:01 Total Visit Minutes 60 Visit Number 19 Number of TRAVELING PHLEBOTOMIST Visits 0 PT-OP-B Current Condition Start: 01/02/18 14:32 Freq: Status: Active Protocol: Document 01/02/18 14:32 [facility] (Rec: 01/02/18 15:20 [facility] [id number]) Current Condition History of Current Condition Onset Date 01/07/18. Current Complaints Right uni-compartmental knee arthroplasty. History of Current Condition Uni-compartmental knee arthroplsty 12/28/17. Reports compliant to HEP, dressing has loosened on one side but he has been taping it closed for shower. Drainage has increased but no leaking. States he got a cold after surgery, better today; started as a chest cold, fever of 99 for 1 day. Has not called surgeon regarding either dressing or cold. Unable to lift LE by himself. Enough pain that he has difficulty sleeping, plus the cold. Prior to surgery ambulated with cane. Future Testing and Treatments Planned Plan is for left knee surgery after recovered from right. Treatment Goals Patient/Caregiver Goals Improve ROM, strength, gait. Prep for left TKA. Prior Functional Status Baseline Function- ADL's Independent Baseline Function- Mobility Independent Baseline Function- Gait Independent, limited distance, used cane due to bilateral knee pn Baseline Function- Recreation/Hobbies photography Baseline Function- Other stairs alternating pattern Current Functional Impairments (Reported) Functional Limitations- Mobility/Gait using walker Functional Limitations- Other step-to on stairs PT-OP-C Subjective Start: 01/02/18 14:32 Freq: Status: Active Protocol: Document 03/21/18 09:00 [facility] (Rec: 03/21/18 09:56 [facility] [id number]) OP-PT Subjective Patient Comments Patient Comments No new c/o, organizing HEP, has identified gym he will go to once he moves in a couple weeks. Ready for discharge from PT. Patient Reported Progress Improving PT-OP-D Balance Start: 01/02/18 14:32 Freq: Status: Active Protocol: Document 02/09/18 11:15 [facility] (Rec: 02/09/18 13:41 [facility] [id number]) Balance Tests Single Limb Standing Single Limb- Right 3 sec Single Limb- Left 10 sec PT-OP-G Mobility & Gait Start: 01/02/18 14:32 Freq: Status: Active Protocol: Document 01/02/18 14:32 [facility] (Rec: 01/02/18 17:11 [facility] [id number]) OP Gait Assessment Gait Gait Assistance Required: Independent Assistive Devices Assistive Device Standard Walker Gait Deviations General Gait Pattern Antalgic Factors Limiting Gait Function Factors Limiting Gait Function Pain PT-OP-K Range of Motion Start: 01/02/18 14:32 Freq: Status: Active Protocol: Document 02/09/18 11:15 [facility] (Rec: 02/09/18 13:41 [facility] [id number]) Knee Goniometric Range of Motion Knee Measured in Degrees Right Extension Active (degrees) 3 Extension Passive (degrees) 1 Knee ROM Limitations Comments R knee to 0 degrees with PROM after manual therapy PT-OP-M Strength Start: 01/02/18 14:32 Freq: Status: Active Protocol: Document 01/02/18 14:32 [facility] (Rec: 01/02/18 17:11 [facility] [id number]) Knee Strength Knee Manual Muscle Testing Right Comments extensor lag requiring mod assist with SAQ and SLR PT-OP-Q Treatments Start: 01/02/18 14:32 Freq: Status: Active Protocol: Document 03/21/18 09:00 [facility] (Rec: 03/21/18 09:56 [facility] [id number]) Cardio Equipment Recumbent Bicycle Duration (Minutes) 10 Resistance 8-15 Seat Position 6 Gym Equipment Shuttle Recovery Unilateral Squats Resistance 50# Shuttle Recovery Platform Unstable Reps/Time 15x2 Bilateral Squats Resistance 100# Shuttle Recovery Platform Unstable Reps/Time 15x2 Therapeutic Exercises Supine Exercises 7 Supine Exercise Name hamstring stretch Equipment Used supine on leg press, standing at stairs Comments used strap Sitting Exercises 5 Sitting Exercise Name hip ad Equipment Used 15 Reps/Minutes 60 3 Sitting Exercise Name hamstring curl ; wilbur and unil Resistance 62.5#, 42.5# Reps/Minutes 15 x 2 2 Sitting Exercise Name LAQ Reps/Minutes 20 1 Sitting Exercise Name hip ab Equipment Used 15 Reps/Minutes 40 Standing Exercises 3 Standing Exercise Name HS stretch on stairs Side bilateral 2 Standing Exercise Name BRIANNA gastroc/soleus stretch Comments also standard HC/hip flex lunge stretch 1 Standing Exercise Name hip ab, hip ext Equipment Used yellow band Manual Therapy Treatment Soft Tissue Mobilization 3 Body Location scar massage Intensity/Depth Moderate 1 Body Location HS, quads PT-OP-R Modalities Start: 01/02/18 14:32 Freq: Status: Active Protocol: Document 03/21/18 09:00 [facility] (Rec: 03/21/18 09:56 [facility] [id number]) Electric Stimulation Electric Stimulation Interferential Current (IFC) Body Location right knee Duration (Minutes) 15 Patient Position Supine Combined With Heat/Cold Cold Pack PT-OP-T Assessment and Plan Start: 01/02/18 14:32 Freq: Status: Active Protocol: Document 03/21/18 09:00 [facility] (Rec: 03/21/18 14:36 [facility] [id number]) Physical Therapy Assessment Goals Three Impairment strength Penitentiary Goal (LTG) right knee strength at least 4 +/5 ( goal met) Two Impairment antalgic gait, requires use of walker Penitentiary Goal (LTG) Patient able to ambulate on level surfaces and stairs ( alternating pattern) without assistive device without significant limp (goal met) One Impairment ROM Penitentiary Goal (LTG) Improve right knee AROM to 0- 120 (goal met) Progress Towards Goals Progress Towards Goals Progressing Toward Goals Progress Comments Patient is independent with HEP, has achieved physical therapy goals. Should continue to progress with consistent exercise as planned . Assessment Summary Assessment Patient ready for discharge from physical therapy. Physical Therapy Plan Discharge Physical Therapy Discharge Reasons Goals Met
--- NOTE | 2018-03-21 14:36 | PT.OPDS ---
Current Diagnoses Presence of right artificial knee joint (03/21/18) Provider Visit Care Team Role Provider Type Sancho Gamez MD Family Provider Physician Primary Care Provider Specialty: Family Practice Address: [address] [place] [address], [id number] Email: [email or web address] Mike Salazar MD Attending Provider Physician Specialty: Orthopedics Address: [address] [place] [address], [id number] Email: [email or web address] Visit Number Visit Number 19 Discharge Summary PT-OP-B Current Condition Start: 01/02/18 14:32 Freq: Status: Active Protocol: Document 01/02/18 14:32 [facility] (Rec: 01/02/18 15:20 [facility] [id number]) Current Condition History of Current Condition Onset Date 01/07/18. Current Complaints Right uni-compartmental knee arthroplasty. History of Current Condition Uni-compartmental knee arthroplsty 12/28/17. Reports compliant to HEP, dressing has loosened on one side but he has been taping it closed for shower. Drainage has increased but no leaking. States he got a cold after surgery, better today; started as a chest cold, fever of 99 for 1 day. Has not called surgeon regarding either dressing or cold. Unable to lift LE by himself. Enough pain that he has difficulty sleeping, plus the cold. Prior to surgery ambulated with cane. Future Testing and Treatments Planned Plan is for left knee surgery after recovered from right. Treatment Goals Patient/Caregiver Goals Improve ROM, strength, gait. Prep for left TKA. Prior Functional Status Baseline Function- ADL's Independent Baseline Function- Mobility Independent Baseline Function- Gait Independent, limited distance, used cane due to bilateral knee pn Baseline Function- Recreation/Hobbies photography Baseline Function- Other stairs alternating pattern Current Functional Impairments (Reported) Functional Limitations- Mobility/Gait using walker Functional Limitations- Other step-to on stairs PT-OP-C Subjective Start: 01/02/18 14:32 Freq: Status: Active Protocol: Document 03/21/18 09:00 [facility] (Rec: 03/21/18 09:56 [facility] [id number]) OP-PT Subjective Patient Comments Patient Comments No new c/o, organizing HEP, has identified gym he will go to once he moves in a couple weeks. Ready for discharge from PT. Patient Reported Progress Improving PT-OP-D Balance Start: 01/02/18 14:32 Freq: Status: Active Protocol: Document 02/09/18 11:15 [facility] (Rec: 02/09/18 13:41 [facility] [id number]) Balance Tests Single Limb Standing Single Limb- Right 3 sec Single Limb- Left 10 sec PT-OP-G Mobility & Gait Start: 01/02/18 14:32 Freq: Status: Active Protocol: Document 01/02/18 14:32 [facility] (Rec: 01/02/18 17:11 [facility] [id number]) OP Gait Assessment Gait Gait Assistance Required: Independent Assistive Devices Assistive Device Standard Walker Gait Deviations General Gait Pattern Antalgic Factors Limiting Gait Function Factors Limiting Gait Function Pain PT-OP-K Range of Motion Start: 01/02/18 14:32 Freq: Status: Active Protocol: Document 02/09/18 11:15 [facility] (Rec: 02/09/18 13:41 [facility] [id number]) Knee Goniometric Range of Motion Knee Measured in Degrees Right Extension Active (degrees) 3 Extension Passive (degrees) 1 Knee ROM Limitations Comments R knee to 0 degrees with PROM after manual therapy PT-OP-M Strength Start: 01/02/18 14:32 Freq: Status: Active Protocol: Document 01/02/18 14:32 [facility] (Rec: 01/02/18 17:11 [facility] [id number]) Knee Strength Knee Manual Muscle Testing Right Comments extensor lag requiring mod assist with SAQ and SLR PT-OP-T Assessment and Plan Start: 01/02/18 14:32 Freq: Status: Active Protocol: Document 03/21/18 09:00 [facility] (Rec: 03/21/18 14:36 [facility] [id number]) Physical Therapy Assessment Goals Three Impairment strength Workers Compensation Claims Assistant Goal (LTG) right knee strength at least 4 +/5 ( goal met) Two Impairment antalgic gait, requires use of walker Workers Compensation Claims Assistant Goal (LTG) Patient able to ambulate on level surfaces and stairs ( alternating pattern) without assistive device without significant limp (goal met) One Impairment ROM Workers Compensation Claims Assistant Goal (LTG) Improve right knee AROM to 0- 120 (goal met) Progress Towards Goals Progress Towards Goals Progressing Toward Goals Progress Comments Patient is independent with HEP, has achieved physical therapy goals. Should continue to progress with consistent exercise as planned . Assessment Summary Assessment Patient ready for discharge from physical therapy. Physical Therapy Plan Discharge Physical Therapy Discharge Reasons Goals Met
== END 2018-04-05 12:40 ==
LOC: PHYS 09:00
PROVIDERS: Family Provider Family Medicine; PCP Family Medicine; Visit Provider Orthopaedic Surgery
DX: Z96.651 Presence of right artificial knee joint (principal)
CPT/HCPCS: 97014; 97110; 97116; 97140; 97162; G0283